=== PATIENT | male | born 1945 | race Caucasian/White ===

== ENCOUNTER 2017-06-18 21:49 | Inpatient (IN) | payer MEDICARE ==
[~2017-06-18 21:49] MED LIST: ISOVUE-370 76%-LOCM 1 ML ONE
[2017-06-18 23:12] LABS: Modified Allen's Test POSITIVE; Sodium 138 mmol/L (135-148); Vent NO
[2017-06-18 23:13] LABS: Mode VENTURI
[2017-06-19] MEDS ORDERED: Acetaminophen 325 MG TAB PO PRN (00:42)
--- NOTE | 2017-06-19 00:42 | PDOC.EVN ---
Event Note - Event Note Event Note: [id number] 1. Acute on chronic systoluc CHF 2. HTN uncontrolled 3. DM tYPE 2 4. h/o cad PLAN: SEE ORDERS
[2017-06-19] MEDS ORDERED: HumaLOG 300 UNITS/3 ML VIAL SC PRN (00:43)
[2017-06-19] MEDS ORDERED: Dextrose 50% Abboject 50 ML SYRINGE SLOW IVP PRN (00:43)
[2017-06-19] MEDS ORDERED: Dextrose 5% in Water 1,000 ML IV PRN (00:43)
[2017-06-19 01:28] LABS: Troponin I 0.159 ng/mL (< 0.028)
[2017-06-19 01:39] VITALS: BMI 34.5
[2017-06-19 05:58] LABS: Troponin I 0.855 ng/mL (< 0.028)
[2017-06-19] MEDS: Furosemide 40 MG/4 ML VIAL SLOW IVP SCH ×2 (06:20→14:36)
--- NOTE | 2017-06-19 06:33 | HP ---
DATE OF ADMISSION: 06/19/2017 CHIEF COMPLAINT: Dyspnea. HISTORY OF PRESENT ILLNESS: Patient is a 72-year-old male with past medical history of hypertension, coronary artery disease, hyperlipidemia, diabetes type 2 with paroxysmal atrial fibrillation, CKD st age 3, came to sudden onset of dyspnea. The patient started all of sudden this evening, he sta rted having dyspnea, dyspnea occurred at rest. There was some lower extremity swelling for the last few weeks. Patient's dyspnea got worse, so he went to outside ER. In the outside ER, the patient wa s hypoxic, so patient was placed initially on nonrebreather, later on patient was placed on CPAP and transferred here. Patient did receive a dose of Lasix by the time patient came to the ER, dyspnea im proved. The patient is currently on room air. He denies chest pain, denies any palpations, denies a ny cough, denies sputum production. Complains of dyspnea on exertion. Complains of dyspnea on lying flat. PAST MEDICAL HISTORY: As per HPI. PAST SURGICAL HISTORY: CABG, appendectomy. SOCIAL HISTORY: Denies smoking, denies alcohol, denies any drugs. FAMILY HISTORY: Positive for heart problems. MEDICATIONS: Reviewed. REVIEW OF SYSTEMS: Constitutional: Denies any fever, denies any chills. Eyes: Denies any vision p roblems. Ears: Denies any hearing loss. Neck: Denies any neck pain. Cardiovascular: Denies any chest pain. Denies any palpations. Respiratory: Denies any cough, denies production. Positive for dyspnea. Musculoskeletal: Positive for edema. Cranial nerve system: Denies syncope. Gastrointes tinal: Denies nausea, vomiting. Integumentary: Denies any rash. All other systems are reviewed an d are negative. PHYSICAL EXAMINATION: CONSTITUTIONAL/VITAL SIGNS: At the time of H&P performed, blood pressure is 160/90, afebrile, respir ation rate 18. GENERAL: The patient appears comfortable. HEENT: Pupils are equal, round, and reactive. Anterior nares patent. Nose normal. Ears normal. T eeth intact. Tongue is moist. NECK: Supple, no JVD. CARDIOVASCULAR: S1, S2 present. Regular rate and rhythm, no murmurs, no rubs, no gallops. RESPIRATORY SYSTEM: Diminished breath sounds bilaterally. Positive for crackles. No wheezing, no r honchi. GASTROINTESTINAL: Soft, nontender, no guarding, no organomegaly, no masses felt. MUSCULOSKELETAL: Positive for edema. INTEGUMENTARY: No rashes seen. PSYCHIATRIC: Mood appropriate at this time. LABORATORY DATA: At the time of H&P performed sodium 137, potassium 4.1, chloride 103, CO2 is 18, BU N 16, creatinine 1.53. BNP 458. White count 7.7, hemoglobin 17.6, platelet count is 212. Chest x-r ay was positive for cardiomegaly and pulmonary vascular congestion. ASSESSMENT AND PLAN: The patient is 72-year-old male. 1. Acute congestive heart failure, possibly systolic heart failure. Plan to start the patient on IV diuretics. Plan to monitor the patient closely. 2. Hypertension, uncontrolled. Monitor blood pressure. Blood pressure improved. We will start pat ient on Coreg. We will add p.r.n. clonidine also. 3. Acute hypoxia. Respiratory status improved. We will monitor respiratory closely. 4. Diabetes mellitus type 2. Monitor blood sugars. We will do insulin sliding scale. 5. History of coronary artery disease. Continue aspirin. 6. History of hyperlipidemia. Continue statins. The case was discussed in detail with the patient.
--- NOTE | 2017-06-19 08:32 | CT ---
PRELIMINARY REPORT/[facility]/EMERGENCY AFTER HOURS PROCEDURE: EXAM: CT Angiography Chest With Intravenous Contrast CLINICAL HISTORY: 72 years old, male; Pain; Chest pain; Type not specified; Patient HX: R/O pe TECHNIQUE: Axial computed tomographic angiography images of the chest with intravenous contrast using pulmonary embolism protocol. CONTRAST: 70 mL of ISOVUE administered intravenously. COMPARISON: No relevant prior studies available. FINDINGS: Pulmonary arteries: No pulmonary embolus in the main or lobar branches. Diffuse motion artifact. No discrete pulmonary embolus identified. Aorta: No acute findings. No thoracic aortic aneurysm. Lungs: Motion artifact. Mild bibasilar dependent and subsegmental atelectasis. Mild interlobular sept al thickening and areas of groundglass attenuation. No mass or consolidation. Pleural space: Small bilateral pleural effusions. Heart: Unremarkable. Bones/joints: No acute fracture. No dislocation. Soft tissues: Unremarkable. Lymph nodes: Unremarkable. No enlarged lymph nodes. IMPRESSION: 1. Motion limited exam. No central pulmonary embolus. 2. Small bilateral pleural effusions. Mild interlobular septal thickening and areas of ground glass attenuation suggestive of edema. Thank you for allowing us to participate in the care of your patient. Dictated and Authenticated by: Nam Mendez MD 06/19/2017 12:52 AM Central Time ([place] & [place]) FINAL REPORT CT PULMONARY ANGIO: Technique: Multiple axial tomograms obtained with IV enhancement in the pulmonary angio phase followi ng angio protocol with multiplanar reconstruction and 3D post processing. FINDINGS: Motion artifact limits the study. No evidence of pulmonary embolus identified. Small effusions and gr ound glass alveolar opacity is seen as described on preliminary report. I am in agreement with the pr eliminary report. QA POS: [facility]
[2017-06-19] MEDS ORDERED: Enoxaparin Sodium 40 MG/0.4 ML SYRINGE SC SCH (09:00)
[2017-06-19] MEDS: Carvedilol 6.25 MG TAB PO SCH ×2 (10:02→16:48)
[2017-06-19] MEDS: Clopidogrel Bisulfate 75 MG TAB PO SCH (10:03)
[2017-06-19] MEDS: Tamsulosin HCl 0.4 MG CAP PO SCH (10:03)
[2017-06-19] MEDS: Allopurinol 100 MG TAB PO SCH (10:03)
[2017-06-19] MEDS: Aspirin 81 mg Enteric Coated Tablet PO SCH (10:03)
[2017-06-19] MEDS: HumaLOG 300 UNITS/3 ML VIAL SC PRN ×2 (12:07→17:10)
--- NOTE | 2017-06-19 13:22 | CON ---
DATE OF CONSULTATION: 06/19/2017 REASON FOR CONSULTATION: IM protocol. HISTORY OF PRESENT ILLNESS: This is a 72-year-old male who developed acute shortness of breath aroun d 7:00 p.m. last night and presented to an [facility] in congestive heart failure. He has bee n treated with diuretics and feels much better this morning. He is no longer experiencing shortness of breath. For reasons that are not quite clear to me, he was admitted to the intermediate care unit . It looks like that he might have been on CPAP for a little while, but he is no longer on that. PAST MEDICAL HISTORY: 1. Coronary artery disease. 2. Non-ST segment elevation myocardial infarction. 3. Atrial fibrillation. 4. Cerebrovascular accident. 5. Hypertension. 6. Congestive heart failure with EF 30%-35%. 7. Hyperlipidemia. 8. Obesity. 9. Benign prostatic hypertrophy. 10. Chronic renal insufficiency. PAST SURGICAL HISTORY: Appendectomy and coronary artery bypass grafting surgery by Dr. Loya. PSYCHIATRIC HISTORY: Remarkable for depression. ALLERGIES: None. MEDICATIONS: Prior to admission, tamsulosin, Proscar, Plavix, allopurinol, acetaminophen, tolterodin e tartrate, testosterone, simvastatin, sertraline, potassium chloride, Nitrostat, Zestril, Amaryl, La six, Zyrtec, Coreg, aspirin, Cordarone. SOCIAL HISTORY: Does not smoke, does not consume alcohol, does not use illicit drugs. 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 REVIEW OF SYSTEMS: Denies any fever, chills, nausea, vomiting, cough, hemoptysis, melena, hematochez ia, hematuria, or dysuria. PHYSICAL EXAMINATION: VITAL SIGNS: Temperature 97.6, pulse 77, respirations 15, O2 sat 99% on 2 liters, blood pressure 153 /97. GENERAL: He is awake and alert, in no distress. HEENT: Pupils for sclerae are icteric. Oropharynx clear. NECK: No adenopathy, no JVD. LUNGS: He has few crackles in both bases bilaterally. CARDIOVASCULAR: S1, S2 is regular, without murmur. ABDOMEN: Soft, nontender, nondistended. EXTREMITIES: No clubbing, cyanosis, trace edema. NEUROLOGIC: Grossly intact throughout. LABORATORY DATA: Sodium 137, potassium 4.1, chloride 103, CO2 18, BUN with 16, creatinine 1.5, gluco se 491. Troponin 0.85. BNP 458. Blood gas pH 7.35, pCO2 42, pO2 of 97. White blood cell count 7.7 , hematocrit 53, platelet count 212. Chest x-ray showed pulmonary edema, bilateral pleural effusions . CT pulmonary angiogram did not show any evidence of clots. ASSESSMENT: 1. Acute systolic congestive heart failure. 2. Acute hypoxic respiratory failure secondary to congestive heart failure. 3. Diabetes mellitus with elevated blood sugar. PLAN: The patient does not need to be in IMCU, can be transferred to Telemetry floor for further car e of his congestive heart failure including diuresis and resumption of his cardiac medications. Dr. Benavidez has been consulted for care in that regard. The patient does not BiPAP therapy.
--- NOTE | 2017-06-19 15:14 | CON ---
DATE OF CONSULTATION: 06/19/2017 REASON FOR CONSULTATION: Shortness of breath and elevated troponin. HISTORY OF PRESENT ILLNESS: Mr. Rivera is a 72-year-old gentleman who was seen and evaluated by Dr. Bhaskar Oliva in the past. He recently presented with acute onset of shortness of breath. This has been occurring over the last several days. He has a history of CAD status post bypass surgery in October 07. He underwent 2-vessel bypass to the ramus branch and LAD. The PDA and RPL were not bypassable nor was the diagonal branch. After reviewing his films, his right coronary artery is 100% occluded. He has a subtotal diagonal br anch and a severely diseased OM branch. PAST MEDICAL HISTORY: CAD, non-Q [place], atrial fibrillation, CVA, cardiomyopathy with LVEF 30%-35%, hyp ertension, obesity. PAST SURGICAL HISTORY: Appendectomy, CABG. ALLERGIES: None. HOME MEDICATIONS: Include Plavix, allopurinol, Proscar, simvastatin, sertraline, potassium, Coreg, a spirin, Cordarone, Amaryl, Zestril, Nitrostat. SOCIAL HISTORY: No current tobacco or alcohol use. REVIEW OF SYSTEMS: Ten point review of systems is reviewed and as above, otherwise negative. PHYSICAL EXAMINATION: GENERAL: Patient is a pleasant male who is in no acute distress. The patient appears his stated age . VITAL SIGNS: Blood pressure 176/99, pulse 73, temperature 97.5. NEUROLOGIC: The patient is alert and oriented times 3 with no focal neurologic deficits. HEENT: Sclerae without icterus. Mouth has moist mucous membranes with normal pallor. NECK: No JVD. Carotid upstroke brisk. No bruits bilaterally. LUNGS: Clear to auscultation with unlabored respirations. BACK: No scoliosis or kyphosis. CARDIAC: Regular rate and rhythm with normal S1 and S2. No S3 or S4 noted. No significant rubs, mu rmurs, thrills, or gallops noted throughout the precordium. PMI is not displaced. There is no parish ternal heave. ABDOMEN: Soft, nontender, nondistended. No peritoneal signs present. No hepatosplenomegaly. No ab normal striae. EXTREMITIES: 2+ femoral and 2+ dorsalis pedis pulses. No cyanosis, clubbing, or edema. SKIN: No gross abnormalities. PERTINENT LABORATORY DATA: Peak troponin 0.85. IMPRESSION: 1. Elevated troponin. 2. Ischemic cardiomyopathy. 3. Coronary artery disease. 4. Status post bypass surgery. RECOMMENDATIONS: Mr. Rivera's current situation is somewhat difficult. He does have a subtotal diag onal branch in addition to a completely occluded right coronary artery with collaterals noted to the right side. I am unsure whether this is demand ischemia versus unstable angina. I did discuss coron lashae angiography with Mr. Rivera. Dr. Weller was present during the discussion. This was my recomme ndation. The patient was reluctant to proceed. Then, did state that we could proceed with medical t herapy. He prefers medical therapy at this time. We would therefore continue aspirin in addition to carvedilol and Plavix. He also has a history of atrial fibrillation. He is currently on amiodarone therapy. I am unsure wh ether he had postop atrial fibrillation or previous atrial fibrillation in the past. If postop atria l fibrillation, we would likely just continue to monitor. This was confirmed on a recent note by Dr. Bhaskar Oliva. He may benefit from a 3-week outpatient event recorder. We will also recommend an echo with Doppler to assess LV function. If less than 35%, he may benefit from a defibrillator.
--- NOTE | 2017-06-19 15:26 | PDOC.PN ---
- Subjective Encounter Start Date: 06/19/17 Encounter Start Time: 15:24 Subjective: feels better.still easily winded w exertion -: no more chest pain - Objective MAR Reviewed: Yes Vital Signs & Weight: Vital Signs (12 hours) Temp Pulse Pulse Pulse Resp BP BP 06/19/17 12:25 76 80 153/101 H 176/99 H 06/19/17 11:15 97.5 F L 73 20 06/19/17 09:04 97.6 F 76 18 06/19/17 08:50 97.6 F 77 15 06/19/17 07:12 97.6 F 77 15 06/19/17 04:00 79 20 BP Pulse Ox Pulse Ox Pulse Ox 06/19/17 12:25 99 97 06/19/17 11:15 161/93 H 95 06/19/17 09:04 156/97 H 99 06/19/17 08:50 06/19/17 07:12 153/97 H 99 06/19/17 04:00 154/85 H 94 L Weight Weight 255 lb I&O: 06/18/17 06/19/17 06/20/17 06:59 06:59 06:59 Intake Total 200 Output Total 1150 Balance -950 Additional Labs: Accuchecks 06/19/17 06/19/17 11:39 06:20 POC Glucose 336 H 392 H Laboratory Tests 10/10/16 02/18/17 06/18/17 08:00 09:39 20:40 D-Dimer Creatinine 1.43 H 1.53 H Troponin I 4.265 H* B-Natriuretic Peptide 06/18/17 06/18/17 06/18/17 20:40 20:40 20:40 D-Dimer 1.41 H Creatinine Troponin I 0.019 B-Natriuretic Peptide 458.8 H 06/19/17 06/19/17 00:53 05:16 D-Dimer Creatinine Troponin I 0.159 H 0.855 H* B-Natriuretic Peptide Phys Exam - Physical Examination Constitutional: NAD HEENT: PERRLA, moist MMs, sclera anicteric, oral pharynx no lesions Neck: no nodes, no JVD, supple, full ROM Respiratory: no wheezing, no rales, no rhonchi, clear to auscultation bilateral bibasilar crackles Cardiovascular: RRR, no significant murmur Gastrointestinal: soft, non-tender, no distention, positive bowel sounds Musculoskeletal: no edema, pulses present Neurological: non-focal, normal sensation, moves all 4 limbs Psychiatric: normal affect, A&O x 3 Skin: no rash Dx/Plan (1) Acute on chronic diastolic heart failure Code(s): I50.33 - ACUTE ON CHRONIC DIASTOLIC (CONGESTIVE) HEART FAILURE Status : Acute (2) NSTEMI (non-ST elevated myocardial infarction) Code(s): I21.4 - NON-ST ELEVATION (NSTEMI) MYOCARDIAL INFARCTION Status: Acute Comment: luis miguel demand ischemia from Ac CHF (3) 3-vessel coronary artery disease Status: Chronic Comment: s/p CABG 10/22 (4) DM type 2 (diabetes mellitus, type 2) Status: Chronic Qualifiers: Diabetes mellitus complication status: with unspecified complications (5) H/O: CVA (cerebrovascular accident) Code(s): Z86.73 - PRSNL HX OF TIA (TIA), AND CEREB INFRC W/O RESID DEFICITS Status: Chronic (6) HLD (hyperlipidemia) Code(s): E78.5 - HYPERLIPIDEMIA, UNSPECIFIED Status: Chronic (7) HTN (hypertension) Code(s): I10 - ESSENTIAL (PRIMARY) HYPERTENSION Status: Chronic (8) Obesity (BMI 30.0-34.9) Code(s): E66.9 - OBESITY, UNSPECIFIED Status: Chronic (9) Paroxysmal a-fib Code(s): I48.0 - PAROXYSMAL ATRIAL FIBRILLATION Status: Resolved Comment: not on any anticoagulation (10) Cardiomyopathy Code(s): I42.9 - CARDIOMYOPATHY, UNSPECIFIED Status: Chronic Comment: EF 30- 35% - Plan DVT proph w/SCDs care discussed w Pt and cardiology.repeat angiogram offered but pt declines -: cont diuresis.repeat ECHO. may need Life vest/AICD -: ? anticoagulation.defer to cardiology. -: monitor I/Os.water restriction.meds as below. -: cont ASA,palvix,BB,statins. * .daily labs. * reconcile home meds Review of Systems - Review of Systems Constitutional: negative: Fever, Chills, Sweats, Weakness, Malaise, Other ENT: negative: Ear Pain, Ear Discharge, Nose Pain, Nose Discharge, Nose Congestion, Mouth Pain, Mouth Swelling, Throat Pain, Throat Swelling, Other Respiratory: SOB with Excertion. negative: Cough, Dry, Shortness of Breath, Hemoptysis, Pleuritic Pain, Sputum, Wheezing Cardiovascular: negative: Chest Pain, Palpitations, Orthopnea, Paroxysmal Noc. Dyspnea, Edema, Light Headedness, Other Gastrointestinal: negative: Nausea, Vomiting, Abdominal Pain, Diarrhea, Constipation, Melena, Hematochezia, Other Genitourinary: negative: Dysuria, Frequency, Incontinence, Hematuria, Retention , Other Musculoskeletal: negative: Neck Pain, Shoulder Pain, Arm Pain, Back Pain, Hand Pain, Leg Pain, Foot Pain, Other Neurological: negative: Weakness, Numbness, Incoordination, Change in Speech, Confusion, Seizures, Other - Medications/Allergies Allergies/Adverse Reactions: Allergies Allergy/AdvReac Type Severity Reaction Status Date / Time No Known Allergies Allergy Verified 06/19/17 07:07 Medications: Current Medications Acetaminophen (Tylenol) 650 mg PO Q4H PRN PRN Reason: fever,pain Allopurinol (Zyloprim) 100 mg PO DAILY [facility] Last Admin: 06/19/17 10:03 Dose: 100 mg Aspirin (Ecotrin) 81 mg PO DAILY [facility] Last Admin: 06/19/17 10:03 Dose: 81 mg Carvedilol (Coreg) 6.25 mg PO BID-[facility] Last Admin: 06/19/17 10:02 Dose: 6.25 mg Clopidogrel Bisulfate (Plavix) 75 mg PO DAILY [facility] Last Admin: 06/19/17 10:03 Dose: 75 mg Dextrose/Water (Dextrose 50%) 25 gm SLOW IVP PRN PRN PRN Reason: Hypoglycemia Enoxaparin Sodium (Lovenox) 40 mg SC 0900 [facility] Last Admin: 06/19/17 12:12 Dose: Not Given Finasteride (Proscar) 5 mg PO HS [facility] Furosemide (Lasix) 40 mg SLOW IVP 0600,1400 [facility] Last Admin: 06/19/17 14:36 Dose: 40 mg Glucagon (Glucagon) 1 mg IM PRN PRN PRN Reason: Hypoglycemia Dextrose/Water (D5w) 1,000 mls @ 0 mls/hr IV .Q0M PRN; As Directed PRN Reason: Hypoglycemia Insulin Human Lispro (Humalog) 0 units SC .MODERATE SLIDING SC PRN PRN Reason: Moderate Correctional Scale Last Admin: 06/19/17 12:07 Dose: 8 unit Insulin Human Lispro (Humalog) 0 units SC .BEDTIME SLIDING SC PRN PRN Reason: Bedtime Correctional Scale Tamsulosin HCl (Flomax) 0.4 mg PO DAILY [facility] Last Admin: 06/19/17 10:03 Dose: 0.4 mg
[2017-06-19] MEDS ORDERED: Communication Order-Pharmacy FS SCH (18:15)
[2017-06-19] MEDS: Finasteride 5 MG TAB PO SCH (21:52)
[2017-06-19] MEDS: Sodium Chloride 0.9% 1,000 ML IV SCH (21:53)
[2017-06-20] MEDS: Sodium Chloride 0.9% 1,000 ML IV SCH ×4 (05:17→20:44)
[2017-06-20] MEDS: Furosemide 40 MG/4 ML VIAL SLOW IVP SCH ×2 (05:22→16:39)
[2017-06-20] MEDS: Allopurinol 100 MG TAB PO SCH (05:34)
[2017-06-20] MEDS: Aspirin 81 mg Enteric Coated Tablet PO SCH (05:35)
[2017-06-20] MEDS: Clopidogrel Bisulfate 75 MG TAB PO SCH (05:35)
[2017-06-20] MEDS: Carvedilol 6.25 MG TAB PO SCH ×2 (05:35→16:40)
[2017-06-20] MEDS: Tamsulosin HCl 0.4 MG CAP PO SCH (05:35)
[2017-06-20 05:55] LABS: #Basophils 0.1 thou/uL (0.0-0.2); #Eosinphils 0.2 thou/uL (0.0-0.7); #Monocytes 0.4 thou/uL (0.11-0.59); #Neutrophils 2.7 thou/uL (1.40-6.50); %Basophils 1.3 % (0.0-1.0); %Eosinophils 3.9 % (0.0-10.0); %Lymphocytes 37.4 % (21.0-51.0); %Monocytes 7.5 % (0.0-10.0); Hematocrit 46.4 % (42.0-52.0); Mean Platelet Volume 7.4 fL (7.4-10.4); Red Blood Cell (RBC) Count 4.85 mill/uL (4.70-6.10); White Blood Cell (WBC) Count 5.5 thou/uL (4.8-10.8)
[2017-06-20 05:57] LABS: Anion Gap 13 mmol/L (10-20); BUN (Urea Nitrogen) 15 mg/dL (8.4-25.7); Calc. Creatinine Clearance 81 mL/min (70-130); Calcium 8.8 mg/dL (7.8-10.44); Carbon Dioxide 24 mmol/L (23-31); Chloride 102 mmol/L (98-107); Estimated GFR-MDRD 53
[2017-06-20] MEDS ORDERED: Heparin 1000 UNIT/NS 500ML(OR) 500 ML ONE ×3 (09:10→10:44)
--- NOTE | 2017-06-20 09:45 | PRG ---
DATE OF SERVICE: 06/20/2017 Mr. Rivera is doing well today. He is scheduled for cardiac catheterization. PHYSICAL EXAMINATION: VITAL SIGNS: Temperature is 98.3, pulse 74, respirations 20, O2 sat 98%, blood pressure 155/89. HEENT: Unremarkable. NECK: No JVD. CHEST: A few crackles in both bases. CARDIAC: S1 and S2 regular. ABDOMEN: Soft. EXTREMITIES: No edema. LABORATORY DATA: White blood cell count 5.5, hematocrit 46, platelet count 154. Sodium 135, potassi um 3.8, BUN 15, creatinine 1.3, glucose 286. Troponin 0.85. ASSESSMENT: 1. Status post flash pulmonary edema related to congestive heart failure. 2. Stable respiratory status. 3. Ischemic cardiomyopathy. PLAN: Coronary angiography today. He is stable from a respiratory standpoint.
[2017-06-20] MEDS ORDERED: Heparin 10,000 UNITS/1 ML VIAL ONE (10:24)
[2017-06-20] MEDS ORDERED: Clopidogrel Bisulfate 300 MG TAB ONE (10:31)
[2017-06-20] MEDS ORDERED: Nitroglycerin 100MG/250ML BOT 250 ML ONE (10:41)
[2017-06-20] MEDS: Polyethylene Glycol 3350 17 GM Packet PO SCH (10:54)
[2017-06-20] MEDS ORDERED: Zolpidem Tartrate 5 MG TAB PO PRN (10:56)
[2017-06-20] MEDS ORDERED: Acetaminophen/Codeine 30-300mg Tablet PO PRN (10:56)
[2017-06-20] MEDS ORDERED: Milk Of Magnesia 30 ML UDCUP PO PRN (10:56)
[2017-06-20] MEDS ORDERED: Mag-Al 1200 mg/1200 mg/30 ML UDCUP PO PRN (10:56)
--- NOTE | 2017-06-20 11:08 | PRG ---
DATE OF SERVICE: 06/20/2017 I spoke to Mr. Rivera prior to the procedure. Yesterday during my visit, he decided on medical thera py. He has now decided to proceed with coronary angiography to assess his coronary anatomy. This wa s discussed with his . Procedure discussed in full detail yesterday. The risks of the procedure include but are not limited to the following: , stroke, [place], need for emergency surgery, loss o f limb, bleeding, and infection, as well as a reaction to the dye causing kidney failure and needing long-term dialysis. I also discussed the risks of PCI to include all of the above including coronary dissection and perforation in addition to acute stent thrombosis and restenosis. All questions abou t the procedure were answered. Given the above, the patient agreed to proceed with coronary angiogra phy and possible PCI. I also discussed drug-coated versus nondrug coated stent placement. There are no current medications and will proceed if needed. He underwent coronary angiography successfully. He was found to have an occluded graft to the LAD an d a patent graft to an intermediate ramus branch. The large OM branch was uncovered. There was also a new lesion noted in the distal LAD. He had a subtotaled groove circumflex artery and a subtotaled diagonal branch and a completely occluded right coronary artery that is known. Then decided to proceed with stent placement to the circumflex artery given the size of the vessel an d the LAD distribution. His creatinine was marginal with low LVEF decided to a staged procedure if n eeded. He underwent successful stent placement of 3.0 x 20 mm Synergy stent.
[2017-06-20] MEDS ORDERED: Fentanyl 100 MCG/2 ML VIAL ONE (13:43)
--- NOTE | 2017-06-20 15:50 | PDOC.PN ---
- Subjective Encounter Start Date: 06/20/17 Encounter Start Time: 15:48 Subjective: s/p Cath today.feels Good. no chest pain/SOB - Objective MAR Reviewed: Yes Vital Signs & Weight: Vital Signs (12 hours) Temp Pulse Resp BP BP Pulse Ox 06/20/17 15:25 97.6 F 72 20 160/90 H 97 06/20/17 08:00 98.3 F 74 20 155/89 H 98 06/20/17 05:35 73 18 155/87 H 98 Weight Weight 252 lb 9.6 oz I&O: 06/19/17 06/20/17 06/21/17 06:59 06:59 06:59 Intake Total 200 2000 Output Total 1150 1175 Balance -950 825 Result Diagrams: 06/20/17 05:05 06/20/17 05:05 Additional Labs: Accuchecks 06/20/17 06/19/17 06/19/17 05:47 21:10 16:53 POC Glucose 269 H 278 H 341 H Laboratory Tests 06/18/17 06/20/17 20:40 05:05 Creatinine 1.53 H 1.33 H Phys Exam - Physical Examination Constitutional: NAD HEENT: PERRLA, moist MMs, sclera anicteric, oral pharynx no lesions Neck: no nodes, no JVD, supple, full ROM Respiratory: no wheezing, no rales, no rhonchi, clear to auscultation bilateral Cardiovascular: RRR, no significant murmur, no rub, gallop Gastrointestinal: soft, non-tender, no distention, positive bowel sounds Musculoskeletal: no edema, pulses present Neurological: non-focal, normal sensation, moves all 4 limbs Psychiatric: normal affect, A&O x 3 Skin: no rash Dx/Plan (1) Acute on chronic diastolic heart failure Code(s): I50.33 - ACUTE ON CHRONIC DIASTOLIC (CONGESTIVE) HEART FAILURE Status : Acute (2) NSTEMI (non-ST elevated myocardial infarction) Code(s): I21.4 - NON-ST ELEVATION (NSTEMI) MYOCARDIAL INFARCTION Status: Acute Comment: luis miguel demand ischemia from Ac CHF. S/P Cath and stenting 06/20/17 (3) 3-vessel coronary artery disease Status: Chronic Comment: s/p CABG 10/22 (4) DM type 2 (diabetes mellitus, type 2) Status: Chronic Qualifiers: Diabetes mellitus complication status: with unspecified complications (5) H/O: CVA (cerebrovascular accident) Code(s): Z86.73 - PRSNL HX OF TIA (TIA), AND CEREB INFRC W/O RESID DEFICITS Status: Chronic (6) HLD (hyperlipidemia) Code(s): E78.5 - HYPERLIPIDEMIA, UNSPECIFIED Status: Chronic (7) HTN (hypertension) Code(s): I10 - ESSENTIAL (PRIMARY) HYPERTENSION Status: Chronic (8) Obesity (BMI 30.0-34.9) Code(s): E66.9 - OBESITY, UNSPECIFIED Status: Chronic (9) Paroxysmal a-fib Code(s): I48.0 - PAROXYSMAL ATRIAL FIBRILLATION Status: Resolved Comment: not on any anticoagulation (10) Cardiomyopathy Code(s): I42.9 - CARDIOMYOPATHY, UNSPECIFIED Status: Chronic Comment: EF 30- 35% - Plan DVT proph w/SCDs hemodynamically stable. monitor fluid balance as on IVF post cath -: ont home meds .pt not taking amiodarone anymore. Not on AC.NSR -: ? DC lasix.will defer to cardiology. -: CR and HF clinic f/u on DC -: am labs.ECHO pending * . Review of Systems - Review of Systems Constitutional: negative: Fever, Chills, Sweats, Weakness, Malaise, Other Respiratory: negative: Cough, Dry, Shortness of Breath, Hemoptysis, SOB with Excertion, Pleuritic Pain, Sputum, Wheezing Cardiovascular: negative: Chest Pain, Palpitations, Orthopnea, Paroxysmal Noc. Dyspnea, Edema, Light Headedness, Other Gastrointestinal: negative: Nausea, Vomiting, Abdominal Pain, Diarrhea, Constipation, Melena, Hematochezia, Other Genitourinary: negative: Dysuria, Frequency, Incontinence, Hematuria, Retention , Other Musculoskeletal: negative: Neck Pain, Shoulder Pain, Arm Pain, Back Pain, Hand Pain, Leg Pain, Foot Pain, Other Neurological: negative: Weakness, Numbness, Incoordination, Change in Speech, Confusion, Seizures, Other - Medications/Allergies Allergies/Adverse Reactions: Allergies Allergy/AdvReac Type Severity Reaction Status Date / Time No Known Allergies Allergy Verified 06/19/17 07:07 Medications: Current Medications Acetaminophen (Tylenol) 650 mg PO Q4H PRN PRN Reason: fever,pain Acetaminophen/Codeine Phosphate (Tylenol #3) 1 tab PO Q4H PRN PRN Reason: Mild Pain (1-3) Al Hydroxide/Mg Hydroxide (Maalox) 30 ml PO Q3H PRN PRN Reason: Indigestion Allopurinol (Zyloprim) 100 mg PO DAILY [facility] Last Admin: 06/20/17 05:34 Dose: 100 mg Aspirin (Ecotrin) 81 mg PO DAILY [facility] Last Admin: 06/20/17 05:35 Dose: 81 mg Atorvastatin Calcium (Lipitor) 40 mg PO QPM [facility] Carvedilol (Coreg) 6.25 mg PO BID[facility] Last Admin: 06/20/17 05:35 Dose: 6.25 mg Clopidogrel Bisulfate (Plavix) 75 mg PO DAILY [facility] Last Admin: 06/20/17 05:35 Dose: 75 mg Dextrose/Water (Dextrose 50%) 25 gm SLOW IVP PRN PRN PRN Reason: Hypoglycemia Finasteride (Proscar) 5 mg PO HS [facility] Last Admin: 06/19/17 21:52 Dose: 5 mg Furosemide (Lasix) 40 mg SLOW IVP 0600,1400 [facility] Last Admin: 06/20/17 05:22 Dose: Not Given Glipizide (Glucotrol Xl) 10 mg PO QAM[facility] Glucagon (Glucagon) 1 mg IM PRN PRN PRN Reason: Hypoglycemia Dextrose/Water (D5w) 1,000 mls @ 0 mls/hr IV .Q0M PRN; As Directed PRN Reason: Hypoglycemia Sodium Chloride (Normal Saline 0.9%) 1,000 mls @ 100 mls/hr IV .Q10H [facility] Last Admin: 06/20/17 05:17 Dose: Not Given Sodium Chloride (Normal Saline 0.9%) 1,000 mls @ 100 mls/hr IV .Q10H [facility] Stop: 06/24/17 14:59 Insulin Human Lispro (Humalog) 0 units SC .MODERATE SLIDING SC PRN PRN Reason: Moderate Correctional Scale Last Admin: 06/19/17 17:10 Dose: 8 unit Insulin Human Lispro (Humalog) 0 units SC .BEDTIME SLIDING SC PRN PRN Reason: Bedtime Correctional Scale Magnesium Hydroxide (Milk Of Magnesium) 30 ml PO Q12H PRN PRN Reason: Constipation Polyethylene Glycol (Miralax) 17 gm PO DAILY [facility] Last Admin: 06/20/17 10:54 Dose: Not Given Potassium Chloride (K-Dur) 20 meq PO QAM[facility] Sodium Chloride (Flush - Normal Saline) 10 ml IVF Q12HR [facility] Last Admin: 06/20/17 13:48 Dose: Not Given Sodium Chloride (Flush - Normal Saline) 10 ml IVF PRN PRN PRN Reason: Saline Flush Tamsulosin HCl (Flomax) 0.4 mg PO DAILY [facility] Last Admin: 06/20/17 05:35 Dose: 0.4 mg Zolpidem Tartrate (Ambien) 5 mg PO HSPRN PRN PRN Reason: Insomnia
[2017-06-20] MEDS ORDERED: Iopamidol 370 76% 50 ML VIAL FS ONE (16:15)
[2017-06-20] MEDS ORDERED: Iopamidol 370 76% 100 ML VIAL ONE (16:15)
[2017-06-20] MEDS ORDERED: Sodium Chloride 0.9% 1,000 ML IV SCH (16:30)
[2017-06-20] MEDS ORDERED: Potassium Chloride 20 MEQ TAB PO SCH (17:00)
[2017-06-20] MEDS: HumaLOG 300 UNITS/3 ML VIAL SC PRN (18:21)
[2017-06-20] MEDS: Finasteride 5 MG TAB PO SCH (20:44)
[2017-06-20] MEDS ORDERED: Atorvastatin Calcium 40 MG TAB PO SCH (21:00)
[2017-06-20] MEDS ORDERED: Non-Formulary Item 1 EACH (Simvastatin [Simvastatin] 80 MG) PO SCH (21:00)
[2017-06-21] MEDS: HumaLOG 300 UNITS/3 ML VIAL SC PRN ×2 (05:44→13:05)
[2017-06-21 06:02] LABS: #Eosinphils 0.3 thou/uL (0.0-0.7); #Lymphocytes 2.2 thou/uL (1.20-3.40); #Monocytes 0.5 thou/uL (0.11-0.59); #Neutrophils 3.6 thou/uL (1.40-6.50); %Basophils 0.6 % (0.0-1.0); %Lymphocytes 33.9 % (21.0-51.0); %Monocytes 7.3 % (0.0-10.0); Mean Platelet Volume 6.9 fL (7.4-10.4); Red Blood Cell (RBC) Count 4.87 mill/uL (4.70-6.10); White Blood Cell (WBC) Count 6.6 thou/uL (4.8-10.8)
[2017-06-21 06:19] LABS: ALT (SGPT) 13 U/L (8-55); AST (SGOT) 9 U/L (5-34); Alkaline Phosphatase 89 U/L (40-150); Anion Gap 12 mmol/L (10-20); BUN (Urea Nitrogen) 11 mg/dL (8.4-25.7); Bilirubin, Total 1.9 mg/dL (0.2-1.2); Calc. Creatinine Clearance 85 mL/min (70-130); Calcium 8.9 mg/dL (7.8-10.44); Carbon Dioxide 29 mmol/L (23-31); Chloride 100 mmol/L (98-107); Estimated GFR-MDRD 56; Globulin 3.5 g/dL (2.4-3.5); Protein, Total 6.7 g/dL (5.8-8.1)
[2017-06-21] MEDS: Furosemide 40 MG/4 ML VIAL SLOW IVP SCH ×2 (06:36→13:05)
[2017-06-21] MEDS ORDERED: Potassium Chloride 20 MEQ TAB PO SCH ×2 (08:00→12:45)
[2017-06-21] MEDS: Tamsulosin HCl 0.4 MG CAP PO SCH (08:28)
[2017-06-21] MEDS: Clopidogrel Bisulfate 75 MG TAB PO SCH (08:28)
[2017-06-21] MEDS: Aspirin 81 mg Enteric Coated Tablet PO SCH (08:28)
[2017-06-21] MEDS: Carvedilol 6.25 MG TAB PO SCH ×2 (08:28→16:57)
[2017-06-21] MEDS: Allopurinol 100 MG TAB PO SCH (08:28)
[2017-06-21] MEDS: Polyethylene Glycol 3350 17 GM Packet PO SCH (08:29)
--- NOTE | 2017-06-21 08:51 | PRG ---
DATE OF SERVICE: 06/21/2017 SUBJECTIVE: He is doing well with his breathing and has no complaints. OBJECTIVE: VITAL SIGNS: Temperature 96.8, pulse 70, blood pressure 153/95, O2 sat 98% on room air, and respirat ory rate 20. HEENT: Unremarkable. NECK: No JVD. CHEST: Clear without wheezing. CARDIAC: S1 and S2, regular. ABDOMEN: Soft. EXTREMITIES: No edema. LABORATORY DATA: White blood cell count 6.6, hematocrit 46, and platelet count 175. Sodium 138, pot assium 3.2, chloride 100, CO2 of 29, BUN 11, creatinine 1.2, and glucose 225. ASSESSMENT: 1. Congestive heart failure. 2. Coronary ischemia - status post coronary angiography and stenting yesterday. 3. Ischemic cardiomyopathy. PLAN: The patient is stable from a respiratory standpoint. I think he can go home. No further pulm onary issues. Please recall if further assistance needed.
--- NOTE | 2017-06-21 12:48 | PDOC.PN ---
- Subjective Encounter Start Date: 06/21/17 Encounter Start Time: 12:47 Patient seen and examined. No new complaints. No overnight events. No chest pain or sob. - Objective MAR Reviewed: Yes Vital Signs & Weight: Vital Signs (12 hours) Temp Pulse Resp BP BP Pulse Ox 06/21/17 11:30 97.5 F L 71 24 H 150/88 H 97 06/21/17 08:28 153/95 H 06/21/17 08:00 97.5 F L 71 24 H 06/21/17 07:21 96.8 F L 70 20 153/95 H 98 06/21/17 03:20 97.7 F 70 14 136/85 98 Weight Weight 252 lb 14.4 oz I&O: 06/20/17 06/21/17 06/22/17 06:59 06:59 06:59 Intake Total 1999 1083 Output Total 1175 1850 Balance 825 -447 Result Diagrams: 06/21/17 05:38 06/21/17 05:38 Additional Labs: Accuchecks 06/21/17 06/21/17 06/20/17 10:40 05:30 20:56 POC Glucose 303 H 211 H 269 H 06/20/17 16:54 POC Glucose 342 H Phys Exam - Physical Examination HEENT: sclera anicteric Neck: supple Respiratory: no wheezing, no rales Cardiovascular: RRR Gastrointestinal: soft Musculoskeletal: no edema Neurological: non-focal, moves all 4 limbs Psychiatric: normal affect, A&O x 3 Skin: no rash Dx/Plan (1) Acute on chronic diastolic heart failure Code(s): I50.33 - ACUTE ON CHRONIC DIASTOLIC (CONGESTIVE) HEART FAILURE Status : Acute (2) NSTEMI (non-ST elevated myocardial infarction) Code(s): I21.4 - NON-ST ELEVATION (NSTEMI) MYOCARDIAL INFARCTION Status: Acute Comment: luis miguel demand ischemia from Ac CHF. S/P Cath and stenting 06/20/17 (3) S/P CABG (coronary artery bypass graft) Code(s): Z95.1 - PRESENCE OF AORTOCORONARY BYPASS GRAFT Status: Acute (4) 3-vessel coronary artery disease Status: Chronic Comment: s/p CABG 10/22 (5) Hypokalemia Code(s): E87.6 - HYPOKALEMIA Status: Resolved - Plan cont current plan of care * . Dc home today. continue home medications. f/u wtih cards i one week.
[2017-06-21 15:40] VITALS: TEMP 97.7
[2017-06-21 16:57] VITALS: BP 153/95
--- NOTE | 2017-06-21 23:37 | DIS ---
DATE OF ADMISSION: 06/19/2017 DATE OF DISCHARGE: 06/21/2017 CONSULTATIONS: Dr. Jones per IMCU protocol and Dr. Lechuga from Cardiology. PROCEDURE: Cardiac catheterization with stent placed to circumflex artery. DISCHARGE DIAGNOSES: 1. Coronary artery disease. 2. Shortness of breath with congestive heart failure exacerbation. 3. Status post stent placement. 4. Hypertension. 5. Hyperlipidemia. 6. Type 2 diabetes. 7. Paroxysmal atrial fibrillation. 8. Chronic kidney disease, stage 3. HOSPITAL COURSE: This is a 72-year-old male with a past medical history as mentioned above, includin g coronary artery disease, hypertension who came to the hospital with shortness of breath and found t o have CHF exacerbation and also had a heart catheterization done with stents placed. Patient was fe eling better and was supposed to go home. Patient was feeling good on the day of discharge and no me dication changes were recommended by Cardiology. Continue the same medications. Follow up with ____ _ outpatient. The patient was also seen by Pulmonology as he was in [facility] per protocol and was stable for discharge from their standpoint. DISCHARGE MEDICATIONS: There are no medication changes done during this visit, glipizide 10 mg p.o. q.a.m., potassium citrate 1 packet p.o. b.i.d. MiraLax as needed, Lasix 40 p.o. daily, potassium 20 mEq b.i.d., Proscar 5 mg p.o. at bedtime, simvastatin 80 mg p.o. q.a.m., Plavix 75 mg daily, aspirin 325 mg daily, allopurinol, Flomax, and Coreg 6.25 b.i.d. ALLERGIES: No known drug allergies. DISCHARGE DISPOSITION: Home. CONDITION ON DISCHARGE: Stable. DISCHARGE FOLLOWUP: With primary care physician in 1 week, Cardiology in 1-2 weeks. Please note that I have spent more than 35 minutes coordinating the discharge care of this patient.
== END 2017-06-21 17:29 | disposition home or self-care (01) | DRG 246 ==
LOC: ERS 21:49 → IMCU/EMU 06-19 00:24 → 2SE 06-19 08:23
PROVIDERS: ADMIT Internal Medicine; ATTEND Internal Medicine
PROC: 027034Z Dilation of Coronary Artery, One Artery with Drug-eluting Intraluminal Device, Percutaneous Approach (ICD-10-PCS; principal; 2017-06-20)
PROC: 4A023N7 Measurement of Cardiac Sampling and Pressure, Left Heart, Percutaneous Approach (ICD-10-PCS; 2017-06-20)
PROC: B3101ZZ Fluoroscopy of Thoracic Aorta using Low Osmolar Contrast (ICD-10-PCS; 2017-06-20)
PROC: B2111ZZ Fluoroscopy of Multiple Coronary Arteries using Low Osmolar Contrast (ICD-10-PCS; 2017-06-20)
PROC: B2151ZZ Fluoroscopy of Left Heart using Low Osmolar Contrast (ICD-10-PCS; 2017-06-20)
DX: I13.0 Hypertensive heart and chronic kidney disease with heart failure and stage 1 through stage 4 chronic kidney disease, or unspecified chronic kidney disease (principal); J96.01 Acute respiratory failure with hypoxia; I50.23 Acute on chronic systolic (congestive) heart failure; I24.8 Other forms of acute ischemic heart disease; I48.0 Paroxysmal atrial fibrillation; E11.22 Type 2 diabetes mellitus with diabetic chronic kidney disease; E78.5 Hyperlipidemia, unspecified; E11.9 Type 2 diabetes mellitus without complications; I25.5 Ischemic cardiomyopathy; I25.10 Atherosclerotic heart disease of native coronary artery without angina pectoris; N18.3 Chronic kidney disease, stage 3 (moderate); I25.2 Old myocardial infarction; N40.0 Benign prostatic hyperplasia without lower urinary tract symptoms; Z86.73 Personal history of transient ischemic attack (TIA), and cerebral infarction without residual deficits; E87.6 Hypokalemia; E66.9 Obesity, unspecified; Z68.30 Body mass index [BMI] 30.0-30.9, adult
CPT/HCPCS: 36415; 36416; 71275; 80048; 80053; 82805; 84484; 85025; 85347; 92928; 93005; 93010; 93306; 93455; 93567; 93798; 94660; A4216; C1725; C1769; C1874; C1887; C9600; J1644; J1650; J1940; J3010

== ENCOUNTER 2017-09-05 21:44 | Inpatient (IN) | payer MEDICARE ==
[2017-09-05 22:23] LABS: Base Excess-Venous -1.6 mmol/L (-30.0-30.0); Bicarbonate (HCO3v) 21.8 mmol/L (1.0-85.0); CO2 Tension (PvCO2) 32.9 mmHg (41.0-51.0); Hemoglobin - Calc 18.3 g/dL (12.0-18.0); Potassium 3.8 mmol/L (3.4-4.7); T. Carbon Dioxide 22.8 mmol/L (1.0-85.0); pH (Venous) 7.428 (7.35-7.45); vO2 Saturation-calc 94.4 % (0.0-100.0)
[2017-09-05 22:51] LABS: Troponin I 2.887 ng/mL (< 0.028)
[2017-09-05] MEDS ORDERED: Labetalol HCl 100 MG/20 ML VIAL ONE (23:21)
[2017-09-06] MEDS ORDERED: Acetaminophen 325 MG TAB PO PRN (00:29)
[2017-09-06] MEDS ORDERED: Ondansetron ODT 4 MG TAB SL PRN (00:29)
[2017-09-06] MEDS ORDERED: Ondansetron HCl/PF 4 MG/2 ML Vial IVP PRN ×2 (00:29→03:42)
[2017-09-06] MEDS ORDERED: Sodium Chloride 0.9% 1,000 ML IV SCH ×3 (00:30→14:30)
[2017-09-06 00:34] VITALS: BMI 33.9
[2017-09-06] MEDS ORDERED: Nitroglycerin 2% Ointment 1 INCH/1 GM Packet TOP SCH (01:00)
[2017-09-06 02:07] LABS: Critical Call Chem Troponin I RESULT DECREASING; Troponin I 2.782 ng/mL (< 0.028)
[2017-09-06] MEDS ORDERED: Ondansetron ODT 4 MG TAB PO PRN (03:42)
[2017-09-06] MEDS ORDERED: hydrALAZINE 20 MG/ML VIAL SLOW IVP PRN (03:42)
[2017-09-06] MEDS ORDERED: Dextrose 50% Abboject 50 ML SYRINGE SLOW IVP PRN (03:42)
[2017-09-06] MEDS ORDERED: Nitroglycerin 0.4 MG TAB (25 Tab Bottle) SL PRN (03:42)
[2017-09-06] MEDS ORDERED: Dextrose 5% in Water 1,000 ML IV PRN (03:42)
[2017-09-06] MEDS ORDERED: cloNIDine 0.1 MG TAB PO PRN (03:42)
[2017-09-06] MEDS ORDERED: Acetaminophen 500 MG TAB PO PRN (03:42)
[2017-09-06] MEDS ORDERED: Aspirin 325 MG TAB PO SCH ×2 (04:00→09:00)
--- NOTE | 2017-09-06 04:25 | HP ---
DATE OF ADMISSION: 09/05/2017 PRIMARY CARE PHYSICIAN: Dr. Chaney. CHIEF COMPLAINT: Shortness of breath. HISTORY OF PRESENT ILLNESS: This is a 72-year-old male who presents to [facility] Emergency Department and transfer from [place] [facility] for suspected non-S T elevation myocardial infarction. Patient presented to [place] [facility] complaining of s hortness of breath over the last several months with mild chest pain. Patient states he was recently admitted in 06/2017 undergoing a left heart catheterization with placement of a drug-eluting stent t o the first obtuse marginal branch. Patient has been compliant with his current medications includin g aspirin therapy. Patient was also noted with depressed ejection fraction in the 30% range on 2D tr ansthoracic echocardiogram, and patient was prescribed a LifeVest. Patient states that the LifeVest has not delivered any type of shock or charge at home. In the emergency room, patient underwent gene ral evaluation including EKG evaluation showing sinus mechanism without acute ST-T wave changes appre ciated. Patient received IV labetalol, after blood pressure was noted at 149/101. Patient also rece ived aspirin 324 mg, Lovenox 100 mg subcutaneously x1 dose, morphine sulfate, Lasix 40 mg x1 dose, am lodipine, and transdermal nitroglycerin. Patient currently states he has no specific complaints of c hest pain. Patient was referred to the Hospitalist Service for admission and evaluation. PAST MEDICAL HISTORY: 1. Chronic kidney disease, stage 3. 2. Hyperlipidemia. 3. Paroxysmal atrial fibrillation. 4. History of obstructive uropathy. 5. Chronic bladder calculi. 6. Benign prosthetic hyperplasia. 7. Chronic systolic congestive heart failure with ejection fraction of 35%. 8. Mild bilateral hydronephrosis. 9. Hypertension. 10. Coronary artery disease. PAST SURGICAL HISTORY: 1. Status post appendectomy. 2. Status post bladder stents. 3. Status post coronary artery bypass grafting x2 vessels. 4. Status post left heart catheterization with drug-eluting stent placement to this first obtuse mar ginal branch. CURRENT MEDICATIONS: We will need to be confirmed with family members. ALLERGIES: No known drug allergies. FAMILY HISTORY: Positive for coronary artery disease. SOCIAL HISTORY: Patient is , resides in [place], [place]. Retired. No current alcohol, tobacco, or illicit drug use. REVIEW OF SYSTEMS: The following complete review of systems was otherwise negative, except as stated per HPI: Constitutional: Weight loss or gain, ability to conduct usual activities. Skin: Rash, i tching. Eyes: Double vision, pain. ENT/Mouth: Nose bleeding, neck stiffness, pain, tenderness. C ardiovascular: Palpitations, dyspnea on exertion, orthopnea. Respiratory: Shortness of breath, whe ezing, cough, hemoptysis, fever, or night sweats. Gastrointestinal: Poor appetite, abdominal pain, heartburn, nausea, vomiting, constipation, or diarrhea. Genitourinary: Urgency, frequency, dysuria, nocturia. Musculoskeletal: Pain, swelling. Neurologic/Psychiatric: Anxiety, depression. Allergy /Immunologic: Skin rash, bleeding tendency. PHYSICAL EXAMINATION: VITAL SIGNS: On admission blood pressure 157/92, pulse 76, respiratory rate 20, temperature 97.5 deg emmanuel Fahrenheit, O2 saturation 96% on 2 liters per minute by nasal cannula. GENERAL APPEARANCE: This is a 72-year-old male, alert and oriented x3, pleasant, in no acu te distress. HEENT: Pupils are equal, round, and reactive to light and accommodation. Extraocular muscles are in tact. No scleral icterus, no conjunctival injection. Nares patent. OP is clear. NECK: Supple, no cervical adenopathy, no thyromegaly, no carotid bruits, no JVD appreciated. Cervic al spine with full active and passive range of motion. CHEST: Diminished breath sounds in the bases bilaterally. CARDIOVASCULAR: S1, S2, without noted murmur. ABDOMEN: Obese, soft, nontender, nondistended. Bowel sounds are positive in all four quadrants. Th ere is no hepatosplenomegaly, no abdominal bruits. No rebound or guarding appreciated. EXTREMITIES: Warm and dry with fair turgor and mild pitting edema to the mid-lima bilaterally. Puls es palpable distally at the dorsalis pedis, posterior tibial, and popliteal arteries bilaterally. Ca pillary refill less than 2 seconds. NEUROLOGIC: Cranial nerves II-XII are grossly intact. No focal or lateralizing signs appreciated. PERTINENT LABORATORY AND X-RAY FINDINGS: Sodium 138, potassium 4.1, chloride 103, CO2 of 20, BUN 13, creatinine 1.29 with estimated GFR 55, glucose 349. Last hemoglobin A1c 10.1 on 07/18/2017, calcium 9.3. LFTs within normal limits. Troponin I ranged between 2.53-2.89. BNP with 559 previously noted 459 on 06/08/2017. CBC showed white blood cell count of 6.8, hemoglobin 17, hematocrit 52, platelet count 192 with normal differential. Beta-hydroxybutyrate level 1.17. EKG dated 09/05/2017 by my in terpretation shows sinus mechanism, heart rate is in the 80s. Attenuated R waves noted in the precor dial leads. Normal axis. Voltage criteria consistent with left ventricular hypertrophy. Portable c hest x-ray dated 09/05/2017 showed pulmonary vascular prominence with patchy bibasilar infiltrates. ASSESSMENT AND PLAN: 1. Non-ST elevation myocardial infarction. Patient will be admitted to the telemetry unit. We will consult Cardiology service in the a.m. Continue aspirin 325 mg daily, Lipitor 40 mg p.o. at bedtime . Consult Cardiology Service for further recommendations and management. Hold Lovenox. 2. Ischemic cardiomyopathy with ejection fraction of approximately 30%. Continue supportive managem ent. Lasix 40 mg as needed. Last 2D transthoracic echocardiogram on 06/19/2017. 3. Diabetes mellitus type 2. Insulin sliding scale for reflexive coverage. Resume glipizide after cardiac evaluation. Accu-Cheks a.c. and at bedtime. 4. Coronary artery disease, status post cardiac stent placement to first obtuse marginal. Stable cu rrently. Continue general supportive measures. 5. Deconditioning. PT evaluation for functional assessment. 6. Hypertension. Resume home antihypertensive regimen and monitor clinical response. 7. Prophylaxis. Sequential compression devices while in bed. PT evaluation for functional assessme nt. Pepcid 20 mg p.o. b.i.d. 8. Code status is FULL. Surrogate medical decision maker is patient's spouse.
[2017-09-06 05:54] LABS: CKMB 3.1 ng/mL (0-6.6)
[2017-09-06 06:03] LABS: Critical Call Chem Troponin I RESULT DECREASING; Troponin I 2.657 ng/mL (< 0.028)
[2017-09-06] MEDS ORDERED: Iopamidol 370 76% 50 ML VIAL FS ONE (07:01)
[2017-09-06] MEDS ORDERED: Iopamidol 370 76% 100 ML VIAL ONE (07:01)
[2017-09-06] MEDS ORDERED: FLU VACC TS2017-18 (>65YR) 0.5 ML SYRINGE IM ONE (09:00)
[2017-09-06] MEDS ORDERED: Prevnar 13-Val Conj/PF 0.5 ML SYRINGE IM ONE (09:00)
[2017-09-06] MEDS ORDERED: Communication Order-Pharmacy FS SCH (12:15)
[2017-09-06] MEDS ORDERED: Diazepam 5 MG TAB PO SCH (12:15)
--- NOTE | 2017-09-06 12:38 | PDOC.EVN ---
Event Note - Event Note Event Note: Chart reviewed. Pt seen. Will follow.
[2017-09-06] MEDS: Famotidine 20 MG TAB PO SCH ×2 (12:42→20:12)
[2017-09-06] MEDS ORDERED: Lidocaine 1% (PF) 30 ML VIAL ONE (12:55)
--- NOTE | 2017-09-06 13:38 | CON ---
DATE OF CONSULTATION: 09/06/2017 REASON FOR CONSULTATION: Elevated troponin and shortness of breath. HISTORY OF PRESENT ILLNESS: Mr. Rivera is a pleasant 72-year-old gentleman who is a previous patient of Dr. Bhaskar Oliva. He has a history of CAD status post bypass surgery. He underwent coronary angiog aylin on 06/2017. He underwent successful stent placement to the high OM versus ramus branch. He mora d residual stenosis of the LAD. He had a known occlusion of the right coronary artery. He recently presented with shortness of breath. Troponin was in the 2.6 range. No chest pain or pre ssure noted. PAST MEDICAL HISTORY: Chronic kidney disease, hyperlipidemia, atrial fibrillation, BPH, systolic hea rt failure and hypertension. PAST SURGICAL HISTORY: Appendectomy, CABG x2 and CAD status post stent placement. ALLERGIES: None. FAMILY HISTORY: Positive for CAD. SOCIAL HISTORY: No current tobacco or alcohol use. HOME MEDICATIONS: Glipizide, Zocor, potassium, Nitrostat, Lasix, Plavix, aspirin, Coreg and allopuri nol. REVIEW OF SYSTEMS: Ten-point review of systems reviewed and is as above negative. PHYSICAL EXAMINATION: GENERAL: Patient is a pleasant male who is in no acute distress. The patient appears his stated age . VITAL SIGNS: Blood pressure 157/92, pulse 86 and respirations 20. NEUROLOGIC: The patient is alert and oriented x3 with no focal neurologic deficits. HEENT: Sclerae without icterus. Mouth has moist mucous membranes with normal pallor. NECK: No JVD. Carotid upstroke brisk. No bruits bilaterally. LUNGS: Clear to auscultation with unlabored respirations. BACK: No scoliosis or kyphosis. CARDIAC: Regular rate and rhythm with normal S1 and S2. No S3 or S4 noted. No significant rubs, mu rmurs, thrills, or gallops noted throughout the precordium. PMI is not displaced. There is no parish ternal heave. ABDOMEN: Soft, nontender, nondistended. No peritoneal signs present. No hepatosplenomegaly. No ab normal striae. EXTREMITIES: 2+ femoral and 2+ dorsalis pedis pulses. No cyanosis, clubbing, or edema. SKIN: No gross abnormalities. PERTINENT LABORATORY DATA: Creatinine 1.29, GFR 55, troponin 2.6 and BNP of 559. IMPRESSION: 1. Shortness of breath. 2. Coronary artery disease. 3. Status post bypass surgery. 4. Status post stent placement. RECOMMENDATIONS: I had a long discussion with Mr. Rivera and had recommendations for treatment. I a m concerned about his elevated troponin. This may be due to demand ischemia or may also be due to is sues with recent placed stent. At this point, I would recommend coronary angiography plus PCI. I di scussed the procedure in full detail with Mr. Rivera. The risks included but are not limited to the following: , stroke, AR, need for emergency surgery, loss of limb, bleeding, and infection, as well as a reaction to the dye causing kidney failure and needing long-term dialysis. I also discusse d the risks of PCI to include all of the above including coronary dissection and perforation in addit ion to acute stent thrombosis and restenosis. All questions were answered. Given the above, patient agreed to proceed with the above procedure.
[2017-09-06] MEDS ORDERED: Midazolam HCl 2 mg/2 ml Vial ONE (13:41)
[2017-09-06] MEDS ORDERED: Fentanyl 100 MCG/2 ML VIAL ONE (13:41)
[2017-09-06] MEDS ORDERED: Nitroglycerin 100MG/250ML BOT 250 ML ONE (13:51)
[2017-09-06] MEDS ORDERED: Heparin 10,000 UNITS/1 ML VIAL ONE (13:51)
[2017-09-06] MEDS ORDERED: Clopidogrel Bisulfate 300 MG TAB ONE (13:59)
--- NOTE | 2017-09-06 15:47 | CCL ---
ADDENDUM: 09/06/2017 Mr. Rivera was brought for angiography after having a recent non-Q-wave MT. He underwent angiography . He had a known lesion present within the LAD. He also had occlusion at a bifurcation of the dista l LAD. During angiography the stent appeared patent. The lesion in the LAD was noted. His vein graft to th e circumflex artery was patent, but the circumflex artery had diffuse disease present and the vessel appeared very small. We decided to proceed with stent placement to the mid and distal LAD. Prior to proceeding with stent placement, I did attempt passing a complete occlusion in the distal LAD. This was unsuccessful after multiple attempts. He underwent successful stent placement with a 2.25 x 12 mm Synergy stent. No immediate complications. POS: ZAN
[2017-09-06] MEDS: Atorvastatin Calcium 40 MG TAB PO SCH (20:12)
[2017-09-06] MEDS: HumaLOG 300 UNITS/3 ML VIAL SC PRN (21:24)
[2017-09-07 05:18] LABS: #Basophils 0.1 thou/uL (0.0-0.2); #Eosinphils 0.2 thou/uL (0.0-0.7); #Lymphocytes 1.7 thou/uL (1.20-3.40); #Monocytes 0.4 thou/uL (0.11-0.59); #Neutrophils 3.5 thou/uL (1.40-6.50); %Basophils 1.1 % (0.0-1.0); %Lymphocytes 29.2 % (21.0-51.0); %Monocytes 7.3 % (0.0-10.0); %Neutrophils 59.4 % (42.0-75.0); Hemoglobin 15.9 g/dL (14.0-18.0); Mean Corpuscular HGB CONC 33.8 g/dL (32.0-36.0); Mean Corpuscular Hemoglobin 32.8 pg (27.0-31.0); Mean Corpuscular Volume 97.2 fl (80.0-94.0); Mean Platelet Volume 7.6 fL (7.4-10.4); Platelet Count 184 thou/uL (130-400); RBC Distribution Width 12.6 % (11.5-14.5); Red Blood Cell (RBC) Count 4.85 mill/uL (4.70-6.10); White Blood Cell (WBC) Count 5.8 thou/uL (4.8-10.8)
[2017-09-07 05:47] LABS: ALT (SGPT) 12 U/L (8-55); AST (SGOT) 13 U/L (5-34); Albumin 2.9 g/dL (3.4-4.8); Alkaline Phosphatase 86 U/L (40-150); Anion Gap 17 mmol/L (10-20); BUN (Urea Nitrogen) 12 mg/dL (8.4-25.7); Bilirubin, Total 1.1 mg/dL (0.2-1.2); Calc. Creatinine Clearance 107 mL/min (70-130); Calcium 8.9 mg/dL (7.8-10.44); Carbon Dioxide 19 mmol/L (23-31); Chloride 104 mmol/L (98-107); Estimated GFR-MDRD 73; Globulin 3.5 g/dL (2.4-3.5); Glucose 220 mg/dL (83-110); Potassium 3.6 mmol/L (3.5-5.1); Protein, Total 6.4 g/dL (5.8-8.1); Sodium 136 mmol/L (136-145)
[2017-09-07] MEDS: Clopidogrel Bisulfate 75 MG TAB PO SCH (08:57)
[2017-09-07] MEDS: Famotidine 20 MG TAB PO SCH ×2 (08:57→20:31)
[2017-09-07] MEDS: HumaLOG 300 UNITS/3 ML VIAL SC PRN ×4 (08:58→20:33)
--- NOTE | 2017-09-07 09:57 | PDOC.CTH ---
<Dagmar Lei - Last Filed: 09/07/17 10:00> Cardiology Progress Note - Subjective The pt seen and examined. No overnight events. No cardiac complaints. He has walked to bathroom without any cardiac symptoms. However, he has not walked with PT yet at this moment. - Objective Vital Signs Temp Pulse Resp BP Pulse Ox 09/07/17 08:53 97.9 F 93 148/79 H 09/07/17 07:57 97 18 181/106 H 98 09/07/17 04:52 97.5 F L 85 18 118/69 98 09/07/17 00:17 98.0 F 94 18 135/77 94 L Weight 250 lb 09/06/17 09/07/17 09/08/17 06:59 06:59 06:59 Intake Total 240 220 Output Total 350 350 Balance -110 -130 - Physical Examination General/Neuro: alert & oriented x3 Neck: no JVD present Lungs: CTA Heart: RRR Abdomen: soft Extremities: other: (No edema; Rt fem clean, no hematoma) - Telemetry Telemetry Rhythm: SR 90s with St depression - Labs Result Diagrams: 09/07/17 04:35 09/07/17 04:35 Troponin/CKMB CK-MB (CK-2) 3.1 ng/mL (0-6.6) 09/06/17 04:58 Troponin I 2.657 ng/mL (< 0.028) H* 09/06/17 04:58 - Assessment/Plan 1. NTEM w/ S/p SYNERGY stent x1 to distal LAD on 09/06/17 - stable; On Plavix, ASA 81mg, and Statin; start Coreg 6.25mg BID 2. CAD with Hx of CABGx2, stent in 06/2017 - stable with current medication; cont. to monitor 3. Hx of Parox. Afib - remain in SR; cont. monitor on tele 4. HTN - start Coreg 6.25mg BID 5. Chronic systolic HF with EF 35% - stable with RA 6. CKD stage 3 - within normal range; 7. Hyperlipidemia - On Statin MAR reviewed * November d/c home tomorrow AM Review of Systems - Review of Systems Constitutional: reports: no symptoms reported EENTM: reports: no symptoms reported Respiratory: reports: no symptoms reported Cardiac (ROS): reports: no symptoms reported ABD/GI: reports: no symptoms reported : reports: no symptoms reported Musculoskeletal: reports: no symptoms reported Skin: reports: no symptoms reported <Yissel Bob - Last Filed: 09/07/17 16:48> Cardiology Progress Note - Objective Vital Signs Temp Pulse Pulse Pulse Resp BP BP 09/07/17 16:32 97.7 F 84 20 09/07/17 12:03 91 100 137/86 175/84 H 09/07/17 11:37 97.8 F 88 18 09/07/17 09:00 97.9 F 93 18 09/07/17 08:53 97.9 F 93 09/07/17 07:57 97 18 09/07/17 04:52 97.5 F L 85 18 BP BP BP Pulse Ox Pulse Ox Pulse Ox 09/07/17 16:32 166/88 H 97 09/07/17 12:03 97 97 09/07/17 11:37 123/80 97 09/07/17 09:00 98 09/07/17 08:53 148/79 H 09/07/17 07:57 181/106 H 98 09/07/17 04:52 118/69 98 Weight 250 lb 09/06/17 09/07/17 09/08/17 06:59 06:59 06:59 Intake Total 240 220 Output Total 350 350 Balance -110 -130 - Labs Result Diagrams: 09/07/17 04:35 09/07/17 04:35 Troponin/CKMB CK-MB (CK-2) 3.1 ng/mL (0-6.6) 09/06/17 04:58 Troponin I 2.657 ng/mL (< 0.028) H* 09/06/17 04:58 - Assessment/Plan Pt. seen and eval. by me. He complains of significant SOB. He has lower leg edema. He denies chest pain. I have reviewed the echo and the cardiac cath. The EF is decreased, the distal LAD is occluded with minimal collateral filling. he has CHF symptoms. He was started on betablockers this AM. I will add lasix and lisinopril.If he is stable then probably home tomorrow. He will need to f/u with Dr. Lechuga in the next couple weeks. He may eventually need an AICD. Will need to consider a life-vest. otherwise i agree with the A/P bu the FLOW NURSE .
[2017-09-07] MEDS ORDERED: Carvedilol 6.25 MG TAB PO SCH (10:15)
--- NOTE | 2017-09-07 12:07 | PDOC.PN ---
- Subjective Encounter Start Date: 09/07/17 Encounter Start Time: 08:20 Pt seen for followup re: NSTEMI. Denies chest pain, shortness of breath, fevers or chills. - Objective Resuscitation Status: Resuscitation Status FULL:Full Resuscitation MAR Reviewed: Yes Vital Signs & Weight: Vital Signs (12 hours) Temp Pulse Resp BP BP Pulse Ox 09/07/17 11:37 97.8 F 88 18 123/80 97 09/07/17 09:00 97.9 F 93 18 98 09/07/17 08:53 97.9 F 93 148/79 H 09/07/17 07:57 97 18 181/106 H 98 09/07/17 04:52 97.5 F L 85 18 118/69 98 09/07/17 00:17 98.0 F 94 18 135/77 94 L Weight Weight 250 lb I&O: 09/06/17 09/07/17 09/08/17 06:59 06:59 06:59 Intake Total 240 220 Output Total 350 350 Balance -110 -130 Result Diagrams: 09/07/17 04:35 09/07/17 04:35 Additional Labs: Accuchecks 09/07/17 09/07/17 09/06/17 10:55 05:54 20:25 POC Glucose 245 H 222 H 283 H 09/06/17 09/06/17 17:13 11:13 POC Glucose 250 H 298 H EKG Reviewed by me: Yes (Tele: NSR) Phys Exam - Physical Examination Constitutional: NAD HEENT: PERRLA, moist MMs, sclera anicteric, oral pharynx no lesions Neck: no nodes, no JVD, supple, full ROM Respiratory: no wheezing, no rales, no rhonchi, clear to auscultation bilateral Cardiovascular: RRR, no rub Gastrointestinal: soft, non-tender, no distention, positive bowel sounds Musculoskeletal: pulses present Neurological: normal sensation, moves all 4 limbs dysarthria Psychiatric: normal affect Skin: no rash Dx/Plan (1) NSTEMI (non-ST elevated myocardial infarction) Code(s): I21.4 - NON-ST ELEVATION (NSTEMI) MYOCARDIAL INFARCTION Status: Acute Comment: likley demand ischemia from Ac CHF. S/P Cath and stenting 06/20/17 (2) DM type 2 (diabetes mellitus, type 2) Status: Chronic Qualifiers: Diabetes mellitus complication status: with unspecified complications (3) H/O: CVA (cerebrovascular accident) Code(s): Z86.73 - PRSNL HX OF TIA (TIA), AND CEREB INFRC W/O RESID DEFICITS Status: Chronic (4) HLD (hyperlipidemia) Code(s): E78.5 - HYPERLIPIDEMIA, UNSPECIFIED Status: Chronic (5) HTN (hypertension) Code(s): I10 - ESSENTIAL (PRIMARY) HYPERTENSION Status: Chronic (6) Obesity (BMI 30.0-34.9) Code(s): E66.9 - OBESITY, UNSPECIFIED Status: Chronic - Plan out of bed/ambulate * . s/p PCI with stents. Ambulate patient. Monitor vital signs, titrate antihypertensives as needed. Continue statin. Continue accuchecks, insulin sliding scale. Review of Systems - Review of Systems Constitutional: negative: fever, chills, sweats, weakness, malaise Respiratory: negative: Cough, Dry, Shortness of Breath, Hemoptysis, SOB with Excertion, Pleuritic Pain, Sputum, Wheezing Cardiovascular: negative: chest pain, palpitations, orthopnea, paroxysmal nocturnal dyspnea, edema, light headedness Gastrointestinal: negative: Nausea, Vomiting, Abdominal Pain, Diarrhea, Constipation, Melena, Hematochezia Genitourinary: negative: Dysuria, Frequency, Incontinence, Hematuria, Retention Skin: negative: Rash, Lesions, Gonzalo, Bruising - Medications/Allergies Allergies/Adverse Reactions: Allergies Allergy/AdvReac Type Severity Reaction Status Date / Time No Known Allergies Allergy Verified 09/06/17 00:14 Medications: Current Medications Acetaminophen (Tylenol) 1,000 mg PO Q6H PRN PRN Reason: Headache/Fever or Mild Pain Aspirin (Aspirin Chewable) 81 mg PO DAILY [facility] Last Admin: 09/07/17 08:57 Dose: 81 mg Atorvastatin Calcium (Lipitor) 40 mg PO QPM [facility] Last Admin: 09/06/17 20:12 Dose: 40 mg [facility] Clonidine (Catapres) 0.1 mg PO Q4H PRN PRN Reason: Systolic BP > 180 Last Admin: 09/06/17 20:11 Dose: 0.1 mg Clopidogrel Bisulfate (Plavix) 75 mg PO DAILY [facility] Last Admin: 09/07/17 08:57 Dose: 75 mg Dextrose/Water (Dextrose 50%) 25 gm SLOW IVP PRN PRN PRN Reason: Hypoglycemia Famotidine (Pepcid) 20 mg PO BID [facility] Last Admin: 09/07/17 08:57 Dose: 20 mg Glucagon (Glucagon) 1 mg IM PRN PRN PRN Reason: Hypoglycemia Hydralazine HCl (Apresoline) 10 mg SLOW IVP Q4H PRN PRN Reason: Systolic BP > 180 Dextrose/Water (D5w) 1,000 mls @ 0 mls/hr IV .Q0M PRN; As Directed PRN Reason: Hypoglycemia Insulin Human Lispro (Humalog) 0 units SC .MODERATE SLIDING SC PRN PRN Reason: Moderate Correctional Scale Last Admin: 09/07/17 11:42 Dose: 4 unit Insulin Human Lispro (Humalog) 0 units SC .BEDTIME SLIDING SC PRN PRN Reason: Bedtime Correctional Scale Last Admin: 09/06/17 21:24 Dose: 3 unit Nitroglycerin (Nitrostat) 0.4 mg SL Q5MIN PRN PRN Reason: Chest Pain Ondansetron HCl (Zofran Odt) 4 mg PO Q6H PRN PRN Reason: Nausea/Vomiting Ondansetron HCl (Zofran) 4 mg IVP Q6H PRN PRN Reason: Nausea/Vomiting Sodium Chloride (Flush - Normal Saline) 10 ml IVF Q12HR [facility] Last Admin: 09/07/17 08:58 Dose: 10 ml Sodium Chloride (Flush - Normal Saline) 10 ml IVF PRN PRN PRN Reason: Saline Flush
--- NOTE | 2017-09-07 15:41 | EKG ---
Test Reason : CP Blood Pressure : / mmHG Vent. Rate : 079 BPM Atrial Rate : 081 BPM P-R Int : 216 ms QRS Dur : 128 ms QT Int : 428 ms P-R-T Axes : 064 -16 135 degrees QTc Int : 490 ms Sinus rhythm with marked sinus arrhythmia with 1st degree A-V block Left ventricular hypertrophy with QRS widening and repolarization abnormality Abnormal ECG No changes Confirmed by GINGER NICK MD ([id number]), continuity editor CORBY WORTHINGTON ([id number]) on 09/07/2017 3:41:13 PM Referred By: Confirmed By:GINGER NICK MD
[2017-09-07] MEDS: Carvedilol 6.25 MG TAB PO SCH (16:35)
[2017-09-07] MEDS ORDERED: Furosemide 20 MG/2 ML VIAL SLOW IVP SCH (17:00)
[2017-09-07] MEDS: Lisinopril 5 MG TAB PO SCH (20:31)
[2017-09-07] MEDS: Atorvastatin Calcium 40 MG TAB PO SCH (20:32)
[2017-09-08 05:56] LABS: Anion Gap 17 mmol/L (10-20); BUN (Urea Nitrogen) 13 mg/dL (8.4-25.7); Calc. Creatinine Clearance 108 mL/min (70-130); Carbon Dioxide 20 mmol/L (23-31); Chloride 103 mmol/L (98-107); Estimated GFR-MDRD 74; Glucose 149 mg/dL (83-110); Potassium 3.5 mmol/L (3.5-5.1); Sodium 136 mmol/L (136-145)
[2017-09-08] MEDS ORDERED: Potassium Chloride 20 MEQ TAB PO SCH (08:00)
[2017-09-08] MEDS ORDERED: Chloraseptic Spray 180 ml Bottle PO PRN (08:48)
[2017-09-08] MEDS ORDERED: Senokot 8.6 MG TAB PO PRN (08:48)
[2017-09-08] MEDS ORDERED: Diabetic Tussin 200 MG/10 ML UDCUP PO PRN (08:48)
[2017-09-08] MEDS ORDERED: Temazepam 15 MG CAP PO PRN (08:48)
[2017-09-08] MEDS ORDERED: Sodium Chloride 0.65% Nasal 44 ML BOT EA NARE PRN (08:48)
[2017-09-08] MEDS ORDERED: Milk Of Magnesia 30 ML UDCUP PO PRN (08:48)
[2017-09-08] MEDS ORDERED: Mag-Al 1200 mg/1200 mg/30 ML UDCUP PO PRN (08:48)
[2017-09-08] MEDS ORDERED: Furosemide 40 MG TAB PO SCH (09:00)
[2017-09-08] MEDS: Lisinopril 5 MG TAB PO SCH (10:47)
[2017-09-08] MEDS: Clopidogrel Bisulfate 75 MG TAB PO SCH (10:47)
[2017-09-08] MEDS: Carvedilol 6.25 MG TAB PO SCH (10:48)
[2017-09-08] MEDS: Famotidine 20 MG TAB PO SCH (10:48)
--- NOTE | 2017-09-08 10:53 | PDOC.PN ---
- Subjective Encounter Start Date: 09/08/17 Encounter Start Time: 07:50 -: old records requested/rev this morning pt is doing ok, but he was slightly emotional and confused, he was well dressed to go home, but per nursing he was confused - Objective Resuscitation Status: Resuscitation Status FULL:Full Resuscitation MAR Reviewed: Yes Vital Signs & Weight: Vital Signs (12 hours) Temp Pulse Resp BP BP BP Pulse Ox 09/08/17 10:48 129/79 09/08/17 10:47 64 09/08/17 04:57 98.0 F 64 14 128/68 96 09/07/17 23:15 97.9 F 69 15 133/73 92 L Weight Weight 250 lb I&O: 09/07/17 09/08/17 09/09/17 06:59 06:59 06:59 Intake Total 220 1760 Output Total 350 712 Balance -130 1048 Result Diagrams: 09/07/17 04:35 09/08/17 04:28 Additional Labs: Accuchecks 09/08/17 09/07/17 09/07/17 05:45 20:00 16:34 POC Glucose 158 H 255 H 253 H 09/07/17 10:55 POC Glucose 245 H Phys Exam - Physical Examination Constitutional: NAD HEENT: PERRLA, moist MMs, sclera anicteric Neck: no JVD, supple Respiratory: no wheezing, no rales, no rhonchi Cardiovascular: RRR, no significant murmur, no rub Gastrointestinal: soft, non-tender, no distention, positive bowel sounds Musculoskeletal: no edema, pulses present Neurological: non-focal, normal sensation, moves all 4 limbs Psychiatric: normal affect, A&O x 3 Skin: no rash, normal turgor Dx/Plan (1) Acute on chronic systolic (congestive) heart failure Code(s): I50.23 - ACUTE ON CHRONIC SYSTOLIC (CONGESTIVE) HEART FAILURE Status : Acute (2) NSTEMI (non-ST elevated myocardial infarction) Code(s): I21.4 - NON-ST ELEVATION (NSTEMI) MYOCARDIAL INFARCTION Status: Acute (3) 3-vessel coronary artery disease Status: Chronic (4) DM type 2 (diabetes mellitus, type 2) Status: Chronic Qualifiers: Diabetes mellitus complication status: with unspecified complications (5) H/O: CVA (cerebrovascular accident) Code(s): Z86.73 - PRSNL HX OF TIA (TIA), AND CEREB INFRC W/O RESID DEFICITS Status: Chronic (6) HLD (hyperlipidemia) Code(s): E78.5 - HYPERLIPIDEMIA, UNSPECIFIED Status: Chronic (7) HTN (hypertension) Code(s): I10 - ESSENTIAL (PRIMARY) HYPERTENSION Status: Chronic (8) Obesity (BMI 30.0-34.9) Code(s): E66.9 - OBESITY, UNSPECIFIED Status: Chronic (9) Paroxysmal a-fib Code(s): I48.0 - PAROXYSMAL ATRIAL FIBRILLATION Status: Chronic Comment: not on any anticoagulation (10) Tobacco dependence Code(s): F17.200 - NICOTINE DEPENDENCE, UNSPECIFIED, UNCOMPLICATED Status: Chronic - Plan cont current plan of care * given his confusion this morning, will prefer to observe him for while * he does not have any neurological deficit * medication reviewed as below * symptomatic treatment * otherwise stable from cardiac perspective. Review of Systems - Review of Systems ENT: negative: Ear Pain, Ear Discharge, Nose Pain, Nose Discharge, Nose Congestion, Mouth Pain, Mouth Swelling, Throat Pain, Throat Swelling, Other Respiratory: negative: Cough, Dry, Shortness of Breath, Hemoptysis, SOB with Excertion, Pleuritic Pain, Sputum, Wheezing Cardiovascular: negative: chest pain, palpitations, orthopnea, paroxysmal nocturnal dyspnea, edema, light headedness, other Gastrointestinal: negative: Nausea, Vomiting, Abdominal Pain, Diarrhea, Constipation, Melena, Hematochezia, Other Genitourinary: negative: Dysuria, Frequency, Incontinence, Hematuria, Retention , Other Musculoskeletal: negative: Neck Pain, Shoulder Pain, Arm Pain, Back Pain, Hand Pain, Leg Pain, Foot Pain, Other - Medications/Allergies Allergies/Adverse Reactions: Allergies Allergy/AdvReac Type Severity Reaction Status Date / Time No Known Allergies Allergy Verified 09/06/17 00:14 Medications: Current Medications Acetaminophen (Tylenol) 1,000 mg PO Q6H PRN PRN Reason: Headache/Fever or Mild Pain Al Hydroxide/Mg Hydroxide (Maalox) 15 ml PO Q4H PRN PRN Reason: Heartburn or Indigestion Aspirin (Aspirin Chewable) 81 mg PO DAILY [facility] Last Admin: 09/08/17 10:48 Dose: 81 mg Atorvastatin Calcium (Lipitor) 40 mg PO QPM [facility] Last Admin: 09/07/17 20:32 Dose: 40 mg Carvedilol (Coreg) 6.25 mg PO BID[facility] Last Admin: 09/08/17 10:48 Dose: 6.25 mg Clonidine (Catapres) 0.1 mg PO Q4H PRN PRN Reason: Systolic BP > 180 Last Admin: 09/06/17 20:11 Dose: 0.1 mg Clopidogrel Bisulfate (Plavix) 75 mg PO DAILY [facility] Last Admin: 09/08/17 10:47 Dose: 75 mg Dextrose/Water (Dextrose 50%) 25 gm SLOW IVP PRN PRN PRN Reason: Hypoglycemia Famotidine (Pepcid) 20 mg PO BID [facility] Last Admin: 09/08/17 10:48 Dose: 20 mg Furosemide (Lasix) 40 mg PO DAILY [facility] Last Admin: 09/08/17 10:48 Dose: 40 mg Glucagon (Glucagon) 1 mg IM PRN PRN PRN Reason: Hypoglycemia Guaifenesin (Robitussin Sf) 200 mg PO Q4H PRN PRN Reason: Cough Hydralazine HCl (Apresoline) 10 mg SLOW IVP Q4H PRN PRN Reason: Systolic BP > 180 Dextrose/Water (D5w) 1,000 mls @ 0 mls/hr IV .Q0M PRN; As Directed PRN Reason: Hypoglycemia Insulin Human Lispro (Humalog) 0 units SC .MODERATE SLIDING SC PRN PRN Reason: Moderate Correctional Scale Last Admin: 09/07/17 16:36 Dose: 6 unit Insulin Human Lispro (Humalog) 0 units SC .BEDTIME SLIDING SC PRN PRN Reason: Bedtime Correctional Scale Last Admin: 09/07/17 20:33 Dose: 3 unit Lisinopril (Zestril) 5 mg PO BID [facility] Last Admin: 09/08/17 10:47 Dose: 5 mg Magnesium Hydroxide (Milk Of Magnesium) 30 ml PO DAILYPRN PRN PRN Reason: Constipation Nitroglycerin (Nitrostat) 0.4 mg SL Q5MIN PRN PRN Reason: Chest Pain Ondansetron HCl (Zofran Odt) 4 mg PO Q6H PRN PRN Reason: Nausea/Vomiting Ondansetron HCl (Zofran) 4 mg IVP Q6H PRN PRN Reason: Nausea/Vomiting Phenol (Chloraseptic [place] 180 Ml Bot) 0 ml PO PRN PRN PRN Reason: Sore Throat Potassium Chloride (K-Dur) 20 meq PO QAM-WM [facility] Last Admin: 09/08/17 10:48 Dose: 20 meq Senna (Senokot) 2 tab PO HSPRN PRN PRN Reason: Constipation Sodium Chloride (Flush - Normal Saline) 10 ml IVF Q12HR [facility] Last Admin: 09/08/17 10:50 Dose: 10 ml Sodium Chloride (Flush - Normal Saline) 10 ml IVF PRN PRN PRN Reason: Saline Flush Sodium Chloride ([place] Nasal [place] 0.65%) 0 ml EA NARE QIDPRN PRN PRN Reason: Nasal Congestion Temazepam (Restoril) 15 mg PO HSPRN PRN PRN Reason: Insomnia
[2017-09-08 11:33] VITALS: TEMP 98
[2017-09-08 11:34] VITALS: BP 129/60
--- NOTE | 2017-09-08 11:52 | PDOC.CTH ---
Cardiology Progress Note - Subjective The pt seen and examined. No overnight events. No cardiac complaints. He walked with PT this AM without difficulties. He is confused the situation. He still cannot recall why he is in the hospital or what kind procedure he underwent. - Objective Vital Signs Temp Pulse Pulse Pulse Resp BP BP 09/08/17 10:48 129/79 09/08/17 10:47 64 09/08/17 10:16 72 73 129/60 09/08/17 08:00 98 F 79 18 09/08/17 04:57 98.0 F 64 14 BP BP Pulse Ox Pulse Ox Pulse Ox 09/08/17 10:48 09/08/17 10:47 09/08/17 10:16 117/60 93 L 94 L 09/08/17 08:00 129/79 09/08/17 04:57 128/68 96 Weight 250 lb 09/07/17 09/08/17 09/09/17 06:59 06:59 06:59 Intake Total 220 1760 Output Total 350 712 Balance -130 1048 - Physical Examination General/Neuro: alert & oriented x3, other: (pls see HPI) Neck: no JVD present Lungs: other: (diminished at bases) Heart: RRR Abdomen: soft Extremities: other: (1+ pitting BLE edema) - Telemetry Telemetry Rhythm: SR, 1st AVB, BBB - Labs Result Diagrams: 09/07/17 04:35 09/08/17 04:28 Troponin/CKMB CK-MB (CK-2) 3.1 ng/mL (0-6.6) 09/06/17 04:58 Troponin I 2.657 ng/mL (< 0.028) H* 09/06/17 04:58 - Assessment/Plan 1. NTEM w/ S/p SYNERGY stent x1 to distal LAD on 09/06/17 - stable; On Plavix, ASA 81mg, Coreg 6.25mg BID, Lisinopril 5mg BID, and Statin 2. CAD with Hx of CABGx2, stent in 06/2017 and 09/06/17 - stable with current medication; cont. to monitor 3. Hx of Parox. Afib - remain in SR; cont. monitor on tele 4. HTN - stable with Coreg 6.25mg BID and Lisinopril 5mg BID. 5. Chronic systolic HF with EF 35% - stable with Lasix 40mg daily. His LifeVest was ordered in 05/2017; however, he has not worn since and refused to wear today. 6. CKD stage 3 - within normal range; cont. monitor 7. Hyperlipidemia - On Statin 8. Confusion - The pt is alerted and oriented to self and place, but he still cannot recall the reason of this admission or which procedure he underwent. MAR reviewed * November d/c home tomorrow AM <Addendum> The pt was d/neto before the pt's LifeVest education and f/u education given by cardiology service. Staff from Dr Pearson's office will call the pt. Review of Systems - Review of Systems Constitutional: reports: no symptoms reported EENTM: reports: no symptoms reported Respiratory: reports: no symptoms reported Cardiac (ROS): reports: no symptoms reported ABD/GI: reports: no symptoms reported : reports: no symptoms reported Musculoskeletal: reports: no symptoms reported Skin: reports: no symptoms reported
--- NOTE | 2017-09-08 12:36 | DIS ---
DATE OF ADMISSION: 09/05/2017 DATE OF DISCHARGE: 09/08/2017 PRIMARY CARE PHYSICIAN: Dr. Amanda Chaney. DISCHARGE DISPOSITION: Home. PRIMARY DISCHARGE DIAGNOSES: Acute on chronic systolic congestive heart failure, non-ST elevation my ocardial infarction, status post Synergy stent placement to left anterior descending. SECONDARY DISCHARGE DIAGNOSES: Tobacco abuse, paroxysmal atrial fibrillation, obesity with BMI 33, h ypertension, dyslipidemia, history of cerebrovascular accident, vascular dementia, diabetes type 2, t hree-vessel coronary artery disease. PRIMARY PROCEDURE/OPERATION: Cardiac catheterization with stent placement to mid LAD. RADIOLOGICAL INVESTIGATION: None. SIGNIFICANT LABORATORY DATA: WBC 5.8, hemoglobin 15.9, platelet 184. Sodium 136, potassium 3.5, BUN 13, creatinine 0.99, calcium 9.0. BNP 272.04. Ketones 1.17. DISCHARGE MEDICATIONS: Allopurinol 100 mg p.o. daily, aspirin 325 mg p.o. daily, Coreg 6.25 mg p.o. b.i.d., Plavix 75 mg p.o. daily, Pepcid 20 mg p.o. b.i.d., Proscar 5 mg p.o. at bedtime, Lasix 40 mg p.o. daily, glipizide 10 mg p.o. daily, lisinopril 5 mg p.o. b.i.d., nitroglycerin 0.4 mg sublingual p.r.n., MiraLax 17 grams p.o. daily, potassium chloride 20 mEq p.o. daily, Zocor 80 mg p.o. at bedtim e, Flomax 0.4 mg p.o. daily, testosterone as per directed. CONTRAINDICATIONS: None. CODE STATUS: FULL CODE. INPATIENT CONSULTANTS: Dr. Lechuga and Dr. Lechuga was consulted while in hospital. TEST RESULTS PENDING ON DISCHARGE: None. ALLERGIES: No known drug allergy. DISCHARGE PLAN: Post hospital, patient will follow up with primary care physician and Dr. Amanda Chaney. HOSPITAL COURSE: A 72-year-old male with above-mentioned medical problem who was admitted by Dr. Col herrera. Please see his H&P for further detail. Patient came to the ER with increasing shortness of breat h. This patient had a non-ST elevation [place] based on blood test. Cardiology was consulted and Dr. Vivek casas did cardiac catheterization and he was found with a block is in LAD, which required a Synergy stent placement. He has ischemic cardiomyopathy and his EF is 30% and this time a cardiac catheteriz ation reported as low EF. This patient required LifeVest before discharge, which was already arrange d. On the day of discharge, patient had a slight confusion episode, but that was rapidly improved. He did not have any focal neurological deficit. He is already on aspirin, Plavix, and statin therapy . This patient does have an important thing to do at home and that is why her family member are okay to go home today. Patient is seen and examined at bedside today. Cardiology cleared him for discharge as well. Please see my progress note from today for further details. All new medication prescription given to his p david.
--- NOTE | 2017-09-08 15:32 | EKG ---
Test Reason : Blood Pressure : / mmHG Vent. Rate : 090 BPM Atrial Rate : 090 BPM P-R Int : 222 ms QRS Dur : 128 ms QT Int : 410 ms P-R-T Axes : 049 091 -61 degrees QTc Int : 501 ms Sinus rhythm with 1st degree A-V block with Premature atrial complexes Rightward axis Non-specific intra-ventricular conduction block T wave abnormality, consider inferolateral ischemia Abnormal ECG Confirmed by DR. Gurmeet MONSON ([id number]) on 09/08/2017 3:32:00 PM Referred By: Confirmed By:DR. Gurmeet MONSON
--- NOTE | 2017-09-08 15:34 | EKG ---
Test Reason : Blood Pressure : / mmHG Vent. Rate : 093 BPM Atrial Rate : 093 BPM P-R Int : 224 ms QRS Dur : 126 ms QT Int : 398 ms P-R-T Axes : 059 -31 125 degrees QTc Int : 494 ms Sinus rhythm with 1st degree A-V block with Premature atrial complexes with Abberant conduction Left axis deviation Left ventricular hypertrophy with QRS widening T wave abnormality, consider lateral ischemia Abnormal ECG When compared with ECG of 06-SEP-2017 15:28, (Unconfirmed) QRS axis Shifted left T wave inversion no longer evident in Inferior leads T wave inversion more evident in Lateral leads Confirmed by DR. Gurmeet MONSON ([id number]) on 09/08/2017 3:33:38 PM Referred By: ELISABETH Confirmed By:DR. Gurmeet MONSON
--- NOTE | 2017-09-09 14:09 | PDOC.EVN ---
Event Note - Event Note Event Note: pt has h/o PAF, but not on anticoagulation as pt is on dual antiplatelet and with anticoagulant, he is high risk for bleeding, so contraindicated, and not on that
== END 2017-09-08 14:23 | disposition home or self-care (01) | DRG 246 ==
LOC: ERS 21:44 → 2NO 23:36
PROVIDERS: ADMIT Family Medicine; ATTEND Family Medicine
PROC: 4A023N7 Measurement of Cardiac Sampling and Pressure, Left Heart, Percutaneous Approach (ICD-10-PCS; principal; 2017-09-06)
PROC: 027034Z Dilation of Coronary Artery, One Artery with Drug-eluting Intraluminal Device, Percutaneous Approach (ICD-10-PCS; 2017-09-06)
PROC: 02C03ZZ Extirpation of Matter from Coronary Artery, One Artery, Percutaneous Approach (ICD-10-PCS; 2017-09-06)
PROC: B2111ZZ Fluoroscopy of Multiple Coronary Arteries using Low Osmolar Contrast (ICD-10-PCS; 2017-09-06)
DX: I21.4 Non-ST elevation (NSTEMI) myocardial infarction (principal); I50.23 Acute on chronic systolic (congestive) heart failure; E11.22 Type 2 diabetes mellitus with diabetic chronic kidney disease; I48.0 Paroxysmal atrial fibrillation; I13.0 Hypertensive heart and chronic kidney disease with heart failure and stage 1 through stage 4 chronic kidney disease, or unspecified chronic kidney disease; Z95.5 Presence of coronary angioplasty implant and graft; E78.5 Hyperlipidemia, unspecified; Z79.82 Long term (current) use of aspirin; Z79.01 Long term (current) use of anticoagulants; N18.3 Chronic kidney disease, stage 3 (moderate); I25.10 Atherosclerotic heart disease of native coronary artery without angina pectoris; I25.5 Ischemic cardiomyopathy; Z79.84 Long term (current) use of oral hypoglycemic drugs; F17.210 Nicotine dependence, cigarettes, uncomplicated; F01.50 Vascular dementia, unspecified severity, without behavioral disturbance, psychotic disturbance, mood disturbance, and anxiety; Z95.1 Presence of aortocoronary bypass graft; E66.9 Obesity, unspecified; Z68.30 Body mass index [BMI] 30.0-30.9, adult
CPT/HCPCS: 36415; 36416; 76942; 80048; 80053; 82010; 82330; 82553; 82803; 83880; 84484; 85025; 85347; 90471; 90670; 90682; 92941; 93005; 93010; 93455; 93798; 94760; 96374; 99152; 99153; A4216; C1769; C1874; C9606; G0008; G0009; G8978-GP-CI; G8979-GP-CI; G8980-GP-CI; J1644; J1940; J2001; J2250; J3010; Q2036

== ENCOUNTER 2019-06-15 12:15 | Inpatient (IN) | payer MEDICARE, MEDICAID ==
[~2019-06-15 12:15] MED LIST changes: -ISOVUE-370 76%-LOCM 1 ML ONE; +Iopamidol-370 76% 500 ML 1 ML ONE
--- NOTE | 2019-06-15 13:08 | RAD ---
Chest one view HISTORY: Dyspnea. Cough. COMPARISON: 09/05/2017. FINDINGS: Left cardiac margin is now obscured by dense infiltrates and pleural fluid. Mediastinum rem ains midline with postoperative changes. Pulmonary vasculature remains slightly engorged. Right lung is well-inflated. IMPRESSION: Dense left basilar infiltrate, likely with superimposed pleural fluid. Cause is not evide nt.
[2019-06-15 13:12] LABS: #Eosinphils 0.2 thou/uL (0.0-0.7); #Lymphocytes 1.2 thou/uL (1.20-3.40); #Monocytes 0.4 thou/uL (0.11-0.59); #Neutrophils 3.8 thou/uL (1.40-6.50); %Basophils 0.4 % (0.0-1.0); %Eosinophils 2.7 % (0.0-10.0); %Lymphocytes 21.2 % (21.0-51.0); %Monocytes 7.4 % (0.0-10.0); %Neutrophils 68.3 % (42.0-75.0); Hemoglobin 14.7 g/dL (14.0-18.0); Mean Corpuscular HGB CONC 32.4 g/dL (32.0-36.0); Mean Corpuscular Hemoglobin 31.9 pg (27.0-31.0); Mean Corpuscular Volume 98.2 fL (78.0-98.0); Platelet Count 136 thou/uL (130-400); RBC Distribution Width 13.5 % (11.5-14.5); White Blood Cell (WBC) Count 5.6 thou/uL (4.8-10.8)
[2019-06-15 13:39] LABS: ALT (SGPT) 9 U/L (8-55); AST (SGOT) 8 U/L (5-34); Albumin 3.3 g/dL (3.4-4.8); Alkaline Phosphatase 79 U/L (40-110); Anion Gap 15 mmol/L (10-20); BUN (Urea Nitrogen) 19 mg/dL (8.4-25.7); Bilirubin, Total 0.8 mg/dL (0.2-1.2); Calc. Creatinine Clearance 0 mL/min (70-130); Calcium 8.7 mg/dL (7.8-10.44); Carbon Dioxide 24 mmol/L (23-31); Chloride 109 mmol/L (98-107); Estimated GFR-MDRD 73; Globulin 3.6 g/dL (2.4-3.5); Glucose 132 mg/dL (83-110); Potassium 4.2 mmol/L (3.5-5.1); Protein, Total 6.9 g/dL (5.8-8.1); Sodium 144 mmol/L (136-145)
[2019-06-15] MEDS ORDERED: Nitroglycerin 2% Ointment 1 INCH/1 GM Packet ONE (15:45)
[2019-06-15] MEDS ORDERED: cefTRIAXone\\ROCEPHIN 1 GM VIAL ONE (15:45)
[2019-06-15] MEDS ORDERED: Furosemide 40 MG/4 ML VIAL ONE (15:45)
[2019-06-15] MEDS ORDERED: Azithromycin 250 MG TAB ONE (15:45)
[2019-06-15] MEDS ORDERED: Acetaminophen 325 MG TAB PO PRN (15:57)
[2019-06-15] MEDS ORDERED: Senokot S 8.6-50 MG TAB PO PRN (15:57)
[2019-06-15 16:47] LABS: Troponin I 0.016 ng/mL (< 0.028)
[2019-06-15] MEDS ORDERED: Dextrose 50% Abboject 50 ML SYRINGE SLOW IVP PRN (18:56)
[2019-06-15] MEDS ORDERED: Dextrose 5% in Water 1,000 ML IV PRN (18:56)
[2019-06-15] MEDS ORDERED: HumaLOG 300 UNITS/3 ML VIAL SC PRN (18:56)
[2019-06-15] MEDS ORDERED: Lorazepam 0.5 MG TAB PO PRN (18:57)
--- NOTE | 2019-06-15 19:48 | PDOC.EVN ---
Event Note - Event Note Event Note: Patient seen and examined. Discussed with Nicole Dozier NP. Patient presented with SOB. In afib with RVR. Has hx of PAF. He is not on anticoagulation. He has hx of cardiomyopathy and EF 30% in 2017. He did not and does not want a LifeVest or defibrillator. Heart is irregular and tachy. Rate is 115-120. He has no breath sounds on the LLL. Has CXR with LLL infiltrate. Concerning for effusion given exam and imaging. CT chest to further assess. Echo. Fernando.
[2019-06-15 20:00] LABS: Troponin I 0.016 ng/mL (< 0.028)
[2019-06-15] MEDS ORDERED: Diltiazem 125 MG in Sodium Chloride 0.9% 100 ML IVPB SCH (20:15)
--- NOTE | 2019-06-15 20:27 | CT ---
CT angiogram chest: 06/15/2019 COMPARISON: 06/19/2017. HISTORY: Pneumonia, shortness of breath TECHNIQUE: Axial CT imaging at 2.5 mm intervals through the chest with IV contrast using CT angiogram protocol with coronal and sagittal 3-D reformatted imaging FINDINGS: No axillary lymphadenopathy. Multiple nonspecific mildly enlarged mediastinal lymph nodes a re noted, including nodes in the prevascular space, right paratracheal region, AP window, and subcarinal region. Limited assessment of the upper abdomen demonstrate no acute findings. Moderate/large left pleural ef fusion. Trace right pleural effusion. Partial consolidation/collapse of the lingula. Near-complete consolidation/collapse of the left lower lobe with sparing of the superior segment. Motion artifact l imits assessment of the lung parenchyma. No pneumothorax seen. Mild patchy opacity noted in the inferior posterior right lower lobe. There is scattered atherosclerotic calcification of the thoracic aorta. There is significant scattere d coronary arterial calcification. Midline sternotomy wires are present. There is no evidence for a central pulmonary arterial embolism. Motion artifact limits assessment of the distal pulmonary arterial structures, particularly within the lower lobes. Review of the osseous structures demonstrates no worrisome lytic or blastic bone lesions. IMPRESSION: Moderate/large left-sided pleural effusion with partial consolidation/collapse of the josue gula and the left lower lobe suggesting multifocal infectious pneumonitis/aspiration. Follow-up imaging following treatment to document resolution advised. Patchy reticulonodular density in the rig ht lower lobe may signify infectious pneumonitis as well. No evidence for central pulmonary arterial embolism. Mediastinal lymphadenopathy, nonspecific, possib ly reactive in nature. This will be better assessed on follow-up imaging as well.
--- NOTE | 2019-06-15 20:56 | HP ---
PRIMARY CARE PHYSICIAN: Dr. Chaney. CHIEF COMPLAINT: Shortness of breath. HISTORY OF PRESENT ILLNESS: Mr. Rivera is a 74-year-old man with a past medical history pertinent for paroxysmal atrial fibrillation, chronic bladder calculi, BPH, chronic diastolic congestive heart failure with the last EF of 30% to 35% taken in 2017, bilateral lower edema, diabetes type 2, hyperlipidemia, hypertension, and has had a CVA in the past. The patient was sent here for the [facility] for nonproductive cough and shortness of breath. He denied any chest pain. He does report some orthopnea. EKG in the emergency room shows atrial fibrillation with controlled ventricular response, left axis, ST segments and T-waves are normal. The patient was given one nitroglycerin sublingual by EMS. Troponin x3 has been undetectable. BNP is 443. The patient's x-ray shows some dense left basilar infiltrates, likely superimposed pleural fluid, cause not evident. Pulmonary vasculature slightly engorged. Right lung is well inflated. The patient was given Rocephin and azithromycin in the emergency room. The patient admitted to telemetry for further management. The patient's code status is a DNR. This was verified with the halfway in [place] and reports that he also has an [id number] DNR. REVIEW OF SYSTEMS: CONSTITUTIONAL: Reports some orthopnea. Denies any chest pain or palpitations. Denies any fever or chills. Does report a dry cough. Does express some grief due to losing his 5 months ago. GI: Denies any abdominal pain, nausea, vomiting, or diarrhea. : Denies any dysuria. All other systems reviewed and are negative unless mentioned above or in the HPI. PAST MEDICAL HISTORY: See HPI. PAST SURGICAL HISTORY: Appendectomy, bladder stents, CABG x2 vessel. PSYCH HISTORY: None. SOCIAL HISTORY: Smokes three cigarettes a day. Denies any alcohol or drug use. PHYSICAL EXAMINATION: VITAL SIGNS: Blood pressure 145/104, pulse is 91, respirations are 24, temperature is 97.8, and pO2 sats are 94% on 3 L. GENERAL: The patient appears nontoxic. He is alert and oriented to person, place, and time. HEENT: Head is atraumatic and normocephalic. Eyes, pupils are equally round and reactive to light. ENT; mouth exam is normal. Mucous membranes are moist. NECK: Trachea is midline. No tenderness. Normal range of motion. RESPIRATORY: Chest; decreased lung sounds on the left base, bibasilar crackles. CARDIOVASCULAR: Irregularly irregular. Heart sounds are normal. ABDOMEN: Nontender. Bowel sounds are heard. BACK: Normal range of motion. No tenderness. EXTREMITIES: Upper extremity; normal range of motion. Motor strength is normal. Radial pulses are normal. Lower extremity; normal range of motion. Motor strength is normal. There is edema present, pitting. Pedal pulses are normal. NEUROLOGIC: The patient is oriented to person, place, and time. Speech is normal. SKIN: Warm, dry, normal in color. ASSESSMENT AND PLAN: 1. The patient with known congestive heart failure with an ejection fraction of 30% to 35% on the last echo in 2016. The patient will repeat the echocardiogram. The patient went into atrial fibrillation with rapid ventricular response while in the emergency room with the heart rate in 150s and then once resting, went down into the one teens. We will start a Cardizem drip. We will continue the Lasix. We will do the IV 40 mg IV push. We will also continue the Coreg. The patient is on Entresto that has been restarted. 2. Dyspnea, may be multifactorial. a. We will continue the azithromycin and Rocephin. A CTA has been ordered of the chest. 3. Hyperlipidemia. We will continue the home medications. 4. History of diabetes type 2. We will add Accu-Cheks before meals and at bedtime, add sliding scale insulin for coverage. 5. Deep vein thrombosis and gastrointestinal prophylaxis has been started. Job ID: [id number]
[2019-06-15] MEDS ORDERED: Divalproex Sodium 250 MG (DR) TAB ONE (21:46)
[2019-06-15] MEDS ORDERED: Famotidine 20 MG TAB ONE (21:46)
[2019-06-15] MEDS ORDERED: Enoxaparin Sodium 100 MG/ML SYRINGE ONE (21:47)
[2019-06-15] MEDS: Divalproex Sodium 125 mg Sprinkle Capsule PO SCH (21:50)
[2019-06-15] MEDS: Famotidine 20 MG TAB PO SCH (21:50)
[2019-06-15] MEDS: Enoxaparin Sodium 100 MG/ML SYRINGE SC SCH (22:02)
[2019-06-15] MEDS: Sacubitril 49 MG/Valsartan 51 MG TABLET PO SCH (22:27)
[2019-06-16] MEDS ORDERED: HumaLOG 300 UNITS/3 ML VIAL SC PRN ×2 (03:24)
[2019-06-16] MEDS ORDERED: Dextrose 50% Abboject 50 ML SYRINGE IVP PRN (03:24)
[2019-06-16] MEDS ORDERED: Dextrose 5% in Water 1,000 ML IV PRN (03:24)
[2019-06-16 04:01] VITALS: BMI 34.0
[2019-06-16 07:40] LABS: #Eosinphils 0.2 thou/uL (0.0-0.7); #Lymphocytes 1.2 thou/uL (1.20-3.40); #Monocytes 0.8 thou/uL (0.11-0.59); #Neutrophils 5.6 thou/uL (1.40-6.50); %Basophils 0.6 % (0.0-1.0); %Eosinophils 2.5 % (0.0-10.0); %Lymphocytes 15.3 % (21.0-51.0); %Monocytes 9.8 % (0.0-10.0); %Neutrophils 71.8 % (42.0-75.0); Hemoglobin 13.6 g/dL (14.0-18.0); Mean Corpuscular HGB CONC 33.3 g/dL (32.0-36.0); Mean Corpuscular Hemoglobin 32.3 pg (27.0-31.0); Mean Corpuscular Volume 96.9 fL (78.0-98.0); Mean Platelet Volume 7.3 fL (7.4-10.4); Platelet Count 122 thou/uL (130-400); RBC Distribution Width 13.3 % (11.5-14.5); Red Blood Cell (RBC) Count 4.22 mill/uL (4.70-6.10); White Blood Cell (WBC) Count 7.7 thou/uL (4.8-10.8)
[2019-06-16 07:51] LABS: ALT (SGPT) Less than 7 U/L (8-55); AST (SGOT) 6 U/L (5-34); Albumin 2.9 g/dL (3.4-4.8); Alkaline Phosphatase 66 U/L (40-110); Anion Gap 11 mmol/L (10-20); BUN (Urea Nitrogen) 15 mg/dL (8.4-25.7); Calc. Creatinine Clearance 124 mL/min (70-130); Calcium 8.2 mg/dL (7.8-10.44); Carbon Dioxide 28 mmol/L (23-31); Chloride 107 mmol/L (98-107); Estimated GFR-MDRD 89; Globulin 3.5 g/dL (2.4-3.5); Glucose 78 mg/dL (83-110); Potassium 3.1 mmol/L (3.5-5.1); Protein, Total 6.4 g/dL (5.8-8.1); Sodium 143 mmol/L (136-145)
[2019-06-16] MEDS: Carvedilol 3.125 MG TAB PO SCH ×2 (08:55→17:38)
[2019-06-16] MEDS: Famotidine 20 MG TAB PO SCH ×2 (08:55→21:11)
[2019-06-16] MEDS: Sacubitril 49 MG/Valsartan 51 MG TABLET PO SCH ×2 (08:55→21:11)
[2019-06-16] MEDS: Furosemide 40 MG/4 ML VIAL SLOW IVP SCH (08:55)
[2019-06-16] MEDS: Divalproex Sodium 125 mg Sprinkle Capsule PO SCH ×2 (08:55→21:10)
[2019-06-16] MEDS: Enoxaparin Sodium 100 MG/ML SYRINGE SC SCH ×2 (08:56→23:25)
[2019-06-16] MEDS ORDERED: Enoxaparin Sodium 40 MG/0.4 ML SYRINGE SC SCH (09:00)
[2019-06-16] MEDS ORDERED: Potassium Chloride 20 MEQ TAB PO SCH (09:00)
[2019-06-16] MEDS: cefTRIAXone\\ROCEPHIN 1 GM in Sodium Chloride 0.9% 100 ML IVPB SCH (14:16)
[2019-06-16] MEDS: Azithromycin 500 MG in Sodium Chloride 0.9% 250 ML 250 ML IVPB SCH (15:02)
--- NOTE | 2019-06-16 16:58 | PDOC.HOSPP ---
- Subjective Subjective: Doing ok. Feels like his breathing ok. Still has a cough. - Objective Vital Signs & Weight: Vital Signs (12 hours) Temp Pulse Pulse Pulse Resp BP BP 06/16/19 15:00 97.5 F L 75 20 06/16/19 11:31 97.6 F 87 18 06/16/19 11:10 87 63 118/81 138/81 06/16/19 08:40 97.6 F 84 20 06/16/19 08:00 BP Pulse Ox 06/16/19 15:00 130/89 100 06/16/19 11:31 145/68 H 100 06/16/19 11:10 06/16/19 08:40 145/80 H 95 06/16/19 08:00 95 Weight Admit Weight 251 lb 3 oz Weight 251 lb 3 oz I&O: 06/15/19 06/16/19 06/17/19 06:59 06:59 06:59 Intake Total 240 Output Total 525 Balance -285 Result Diagrams: 06/16/19 07:25 06/16/19 07:25 Additional Labs: Accuchecks 06/16/19 06/16/19 06/16/19 10:31 06:07 02:22 POC Glucose 109 78 79 Hospitalist ROS - Medication Medications: Active Medications Generic Name Dose Route Start Last Admin Trade Name Sen PRN Reason Stop Dose Admin Carvedilol 3.125 mg 06/16/19 08:00 06/16/19 08:55 Coreg PO 3.125 mg BID-WM FIOR Administration Divalproex Sodium 375 mg 06/15/19 21:00 06/16/19 08:55 Depakote Sprinkle PO 375 mg BID FIOR Administration Enoxaparin Sodium 100 mg 06/15/19 21:00 06/16/19 08:56 Lovenox SC 100 mg 0900,2100 FIOR Administration Famotidine 20 mg 06/15/19 21:00 06/16/19 08:55 Pepcid PO 20 mg BID FIOR Administration Furosemide 40 mg 06/16/19 09:00 06/16/19 08:55 Lasix SLOW IVP 40 mg DAILY FIOR Administration Azithromycin 500 mg/ Sodium 250 mls @ 250 mls/hr 06/16/19 15:00 06/16/19 15: 02 Chloride IVPB 250 mls Q24HR FIOR Administration Ceftriaxone Sodium 1 gm/ 100 mls @ 200 mls/hr 06/16/19 14:00 06/16/19 14:16 Sodium Chloride IVPB 100 mls Q24HR FIOR Administration Sacubitril/Valsartan 2 tab 06/15/19 21:00 06/16/19 08:55 Entresto 49 Mg-51 Mg Tablet PO 2 tab BID FIOR Administration - Exam General Appearance: NAD, awake alert Neck: supple, symmetric, no JVD, no thyromegaly, no lymphadenopathy, no carotid bruit Heart: RRR, no murmur, no gallops, no rubs, normal peripheral pulses Respiratory: no rales, no ronchi, normal chest expansion Respiratory - other findings: Witnessed cough. Gastrointestinal: soft, non-tender, non-distended, normal bowel sounds, no palpable masses Extremities: no cyanosis, no clubbing, 1+ LE edema (left slightly greater than right.) Hosp A/P (1) Ischemic cardiomyopathy Code(s): I25.5 - ISCHEMIC CARDIOMYOPATHY Status: Acute (2) Acute on chronic systolic (congestive) heart failure Code(s): I50.23 - ACUTE ON CHRONIC SYSTOLIC (CONGESTIVE) HEART FAILURE Status : Acute (3) 3-vessel coronary artery disease Status: Chronic (4) DM type 2 (diabetes mellitus, type 2) Status: Chronic Qualifiers: Diabetes mellitus complication status: with unspecified complications (5) H/O: CVA (cerebrovascular accident) Code(s): Z86.73 - PRSNL HX OF TIA (TIA), AND CEREB INFRC W/O RESID DEFICITS Status: Chronic (6) HLD (hyperlipidemia) Code(s): E78.5 - HYPERLIPIDEMIA, UNSPECIFIED Status: Chronic (7) HTN (hypertension) Code(s): I10 - ESSENTIAL (PRIMARY) HYPERTENSION Status: Chronic (8) Obesity (BMI 30.0-34.9) Code(s): E66.9 - OBESITY, UNSPECIFIED Status: Chronic (9) Paroxysmal a-fib Code(s): I48.0 - PAROXYSMAL ATRIAL FIBRILLATION Status: Chronic (10) Tobacco dependence Code(s): F17.200 - NICOTINE DEPENDENCE, UNSPECIFIED, UNCOMPLICATED Status: Chronic - Plan Dense LLL pleural effusion. Cover for pneumonia with Rocephin and Azithromycin. Treat CHF with diuretics, Coreg, after load reduction. Echo. Cardiology consult. Continue Entresto. Rate controlled afib with diltiazem. Therapeutic Lovenox. Blood sugars well controlled. Adequate BP control.
--- NOTE | 2019-06-16 19:09 | CON ---
DATE OF CONSULTATION: 06/16/2019 REASON FOR CONSULTATION: Shortness of breath and atrial fibrillation. HISTORY OF PRESENT ILLNESS: Mr. Rivera is a very pleasant 74-year-old white gentleman, who comes to the hospital for shortness of breath. He was [facility] from the [facility] for this. He was in rate controlled atrial fibrillation, suddenly went into RVR, had to be started on diltiazem, eventually went back to controlled atrial fibrillation. He was admitted for possibly an acute exacerbation of heart failure as well as atrial fibrillation. His BNP was only mildly elevated in the 400 range. He does have a history of ischemic cardiomyopathy with an EF around 30% to 35% last time he was evaluated in the office. He was offered an AICD and he refused. He states that he does not want anything done. He just wants to be left alone given medicines. Currently, he denies any chest pain, tightness, or pressure. PAST MEDICAL HISTORY: 1. Coronary artery disease, status post CABG x2. 2. Chronic kidney disease. 3. Hyperlipidemia. 4. History of atrial fibrillation. 5. BPH. 6. Chronic systolic heart failure, last EF at about 30% to 35%. 7. Hypertension. PAST SURGICAL HISTORY: 1. Appendectomy. 2. CABG x2 in 2017. 3. Status post stent to the LAD before the occlusion to perfuse diagonal, this was after bypass. ALLERGIES: NO KNOWN DRUG ALLERGIES. OUTPATIENT MEDICATIONS: 1. Levemir 25 units a day. 2. NovoLog. 3. Depakote. 4. Cymbalta. 5. Glucagon. 6. Metformin. 7. Vitamin B12. 8. Ipratropium. 9. Entresto 97/103 b.i.d. 10. Allopurinol. 11. Coreg 3.125 b.i.d. 12. Finasteride 5 mg at bedtime. 13. Famotidine. 14. Plavix 75 mg a day. 15. Sublingual nitroglycerin p.r.n. 16. Furosemide 20 mg b.i.d. 17. Simvastatin 80 mg at bedtime. 18. Potassium chloride 20 mEq b.i.d. 19. Tamsulosin. ALLERGIES: NO KNOWN DRUG ALLERGIES. SOCIAL HISTORY: No alcohol, tobacco, or drugs. He lives in a [facility]. FAMILY HISTORY: Positive for early coronary artery disease. REVIEW OF SYSTEMS: 12-point review of systems was done and was all negative unless stated in the history of present illness, however, he is confused. PHYSICAL EXAMINATION: VITAL SIGNS: Temperature 97.5, pulse 75, respiratory rate 20, saturating 100% on 3 L nasal cannula, blood pressure 130/89. GENERAL: Awake, alert, oriented to person, place, and time, but has lot of difficulty with this, in no distress. HEENT: Normocephalic and atraumatic. NECK: Supple. LUNGS: No breath sounds in the left base, normal in the right base. CARDIOVASCULAR: S1 and S2. There is a grade 2/6 systolic murmur at the right upper sternal border. ABDOMEN: Soft. Positive bowel sounds. EXTREMITIES: No edema. SKIN: Warm and dry. LABORATORY DATA: Laboratory work was reviewed. CBC with a white count of 5, hemoglobin of 14, hematocrit 45, and platelet count of 136. Chemistry was reviewed. Sodium 144; potassium 4.2, down to 3.1; chloride of 109; carbon dioxide, anion gap, BUN and creatinine are all normal; GFR 73; glucose of 132. Total bilirubin, AST , ALT, and alkaline phosphatase were normal. Troponin is normal x3. BNP was 443. Albumin of 3.3. IMAGING STUDIES: 1. EKG was reviewed. 2. CT of the chest was reviewed. He has a large pleural effusion on the left with associated atelectasis versus consolidation. Otherwise, clear lung levy. ASSESSMENT AND PLAN: 1. Acute on chronic systolic heart failure. most of his shortness of breath is likely related to the large amount of fluid on his left lung pleura. 2. Atrial fibrillation with rapid ventricular response. Currently, atrial fibrillation is rate controlled. 3. Chronic systolic heart failure. 4. Coronary artery disease, status post coronary artery bypass graft, stable at this time. No acute coronary syndrome. PLAN: 1. Agree with continued doses of IV Lasix, currently just one a day, 40 mg IV daily, I think it should be enough, I do not think that amount of effusion on the left lung is related to CHF, usually this is right-sided. I would probably want a sample of this to see if it is transudative versus exudative. If it is transudative, it is likely related to his low EF. 2. Agree with IV antibiotics per Primary Team. 3. Agree with full anticoagulation with Lovenox. Would not start any oral anticoagulants until it is certain that he is to either have or not have a thoracentesis. Thank you for letting us to participate in the care of your patient. We will continue to follow. Job ID: [id number] MTDD
[2019-06-17 05:10] LABS: Anion Gap 12 mmol/L (10-20); BUN (Urea Nitrogen) 19 mg/dL (8.4-25.7); Calc. Creatinine Clearance 116 mL/min (70-130); Calcium 8.5 mg/dL (7.8-10.44); Carbon Dioxide 28 mmol/L (23-31); Chloride 106 mmol/L (98-107); Estimated GFR-MDRD 81; Glucose 105 mg/dL (83-110); Potassium 3.4 mmol/L (3.5-5.1); Sodium 143 mmol/L (136-145)
[2019-06-17] MEDS: Divalproex Sodium 125 mg Sprinkle Capsule PO SCH ×2 (09:23→20:46)
[2019-06-17] MEDS: Enoxaparin Sodium 100 MG/ML SYRINGE SC SCH ×2 (09:24→20:47)
[2019-06-17] MEDS: Famotidine 20 MG TAB PO SCH ×2 (09:24→20:47)
[2019-06-17] MEDS: Carvedilol 3.125 MG TAB PO SCH ×2 (09:24→17:25)
[2019-06-17] MEDS: Sacubitril 49 MG/Valsartan 51 MG TABLET PO SCH ×2 (09:24→20:47)
[2019-06-17] MEDS: Furosemide 40 MG/4 ML VIAL SLOW IVP SCH (09:30)
--- NOTE | 2019-06-17 10:51 | PQF ---
CLINICAL DOCUMENTATION IMPROVEMENT CLARIFICATION FORM: ICD-10 Updated PLEASE DO AN ADDENDUM TO THE PROGRESS NOTE WITH ANY DOCUMENTATION UPDATES OR ADDITIONS AND CARRY THROUGH TO DC SUMMARY. THANK YOU. DATE: 06/17/19 ATTN: DR. ELLIS Please exercise your independent, professional judgment in responding to the clarification form. Clinical indicators are provided on the bottom of this form for your review Please check appropriate box(s) to clarify if the following diagnosis has been ruled in or ruled out: "PNEUMONIA" [ ] Ruled in diagnosis [ ] Continue to treat [ ] Resolved [ ] Ruled out diagnosis [ ] Cannot rule out diagnosis [ x ] Other diagnosis __Pneumonitis due to pleural effusion [ ] Unable to determine In addition, please specify: Present on Admission (POA): [ x ] Yes [ ] No [ ] Unable to determine For continuity of documentation, please document condition throughout progress notes and discharge summary. Thank You. CLINICAL INDICATORS - SIGNS / SYMPTOMS / LABS / RESULTS AND LOCATION IN MR ER NOTE: "CAP; PULMONARY EDEMA" CHEST XRAY 06/15: "LEFT CARDIAC MARGIN IS NOW OBSCURED BY DENSE INFILTRATES AND PLEURAL FLUID. PULMONARY VASCULATURE REMAINS SLIGHTLY ENGORGED." H&P 06/15: "DYSPNEA , MAY BE MULTIFACTORIAL" HOSPITALIST PROGRESS NOTE 06/16: "DENSE LLL PLEURAL EFFUSION; COVER FOR PNEUMONIA RISKS: H/O CHF (ER NOTE) AFIB WITH RVR (EVENT NOTE 06/15) H/O SMOKING (H&P 06/15) TREATMENT: IV ROCEPHIN (ER/06/16) PO AZITHROMYCIN (ER-06/16) CHEST XRAY 06/15 [employer] Win[employer](This form is maintained as a part of the permanent medical record) 2014 [employer]. All Rights Reserved [email or web address] Office: [phone] [facility]
--- NOTE | 2019-06-17 13:58 | PDOC.HOSPP ---
- Subjective Encounter Date: 06/17/19 Encounter Time: 14:45 Subjective: f/u for acute/chronic systolic CHF on current IV Lasix with large LLL pleural effusion on Rocephin/Zithromax. No new complaints. - Objective Vital Signs & Weight: Vital Signs (12 hours) Temp Pulse Pulse Pulse Resp BP BP 06/17/19 11:25 97.7 F 97 18 06/17/19 09:44 68 87 170/80 H 161/90 H 06/17/19 08:00 96.1 F L 73 22 H 06/17/19 03:25 97.3 F L 76 20 BP Pulse Ox Pulse Ox Pulse Ox 06/17/19 11:25 138/77 95 06/17/19 09:44 98 99 06/17/19 08:00 145/84 H 95 06/17/19 03:25 139/89 94 L Weight Admit Weight 251 lb 3 oz Weight 254 lb 1.6 oz I&O: 06/16/19 06/17/19 06/18/19 06:59 06:59 06:59 Intake Total 240 1200 Output Total 525 760 Balance -285 440 Result Diagrams: 06/16/19 07:25 06/17/19 04:31 Additional Labs: Accuchecks 06/17/19 06/17/19 06/16/19 10:21 05:25 20:18 POC Glucose 91 97 129 H 06/16/19 16:56 POC Glucose 122 H Laboratory Tests 06/18/17 09/05/17 09/08/17 20:40 18:40 09:18 B-Natriuretic Peptide 458.8 H 559.4 H 272.4 H 10/08/17 06/15/19 17:20 12:58 B-Natriuretic Peptide 178.3 H 443.1 H Radiology Reviewed by me: Yes (CT chest - mod LLL effusion with atelectasis, pneumonitis) EKG Reviewed by me: Yes (Tele - A-fib in 80's) Hospitalist ROS - Medication Medications: Active Medications Generic Name Dose Route Start Last Admin Trade Name Freq PRN Reason Stop Dose Admin Acetaminophen 650 mg 06/15/19 15:57 06/16/19 21:11 Tylenol PO 650 mg Q4H PRN Administration Headache/Fever/Mild Pain (1-3) Carvedilol 3.125 mg 06/16/19 08:00 06/17/19 09:24 Coreg PO 3.125 mg BID-WM FIOR Administration Divalproex Sodium 375 mg 06/15/19 21:00 06/17/19 09:23 Depakote Sprinkle PO 375 mg BID FIOR Administration Enoxaparin Sodium 100 mg 06/15/19 21:00 06/17/19 09:24 Lovenox SC 100 mg 0900,2100 FIOR Administration Famotidine 20 mg 06/15/19 21:00 06/17/19 09:24 Pepcid PO 20 mg BID FIOR Administration Furosemide 40 mg 06/16/19 09:00 06/17/19 09:30 Lasix SLOW IVP 40 mg DAILY FIOR Administration Azithromycin 500 mg/ Sodium 250 mls @ 250 mls/hr 06/16/19 15:00 06/16/19 15: 02 Chloride IVPB 250 mls Q24HR FIOR Administration Ceftriaxone Sodium 1 gm/ 100 mls @ 200 mls/hr 06/16/19 14:00 06/16/19 14:16 Sodium Chloride IVPB 100 mls Q24HR FIOR Administration Sacubitril/Valsartan 2 tab 06/15/19 21:00 06/17/19 09:24 Entresto 49 Mg-51 Mg Tablet PO 2 tab BID FIOR Administration Sodium Chloride 10 ml 06/15/19 15:57 06/17/19 09:25 Flush - Normal Saline IVF 10 ml PRN PRN Administration Saline Flush - Exam General Appearance: NAD, awake alert Eye: PERRL, anicteric sclera ENT: normocephalic atraumatic, no oropharyngeal lesions Neck: supple, symmetric, no JVD, no thyromegaly Heart: no murmur, no gallops, no rubs, normal peripheral pulses, irregular Respiratory: tachypneic Respiratory - other findings: diminished in LLL, few crackles Gastrointestinal: soft, non-tender, non-distended, normal bowel sounds, no palpable masses Extremities: no cyanosis, 1+ LE edema Skin: normal turgor, no lesions Neurological: cranial nerve grossly intact, no new deficit Musculoskeletal: normal tone, generalized weakness Psychiatric: oriented to person, oriented to place Hosp A/P (1) Pneumonitis Code(s): J18.9 - PNEUMONIA, UNSPECIFIED ORGANISM Status: Acute Plan: LLL involvement suspected, continue Rocephin/Zithromax, Bronchodilators, OOB/ ambulate (2) Ischemic cardiomyopathy Code(s): I25.5 - ISCHEMIC CARDIOMYOPATHY Status: Chronic Plan: EF in 20% range, continue Lasix IV, repeat Echo pending (3) Acute on chronic systolic (congestive) heart failure Code(s): I50.23 - ACUTE ON CHRONIC SYSTOLIC (CONGESTIVE) HEART FAILURE Status : Acute Plan: Continue IV Lasix, 2D echo pending, Resume Entresto (4) 3-vessel coronary artery disease Status: Chronic Plan: Continue Plavix, (5) DM type 2 (diabetes mellitus, type 2) Status: Chronic Qualifiers: Diabetes mellitus complication status: with unspecified complications (6) Atrial fibrillation Code(s): I48.91 - UNSPECIFIED ATRIAL FIBRILLATION Status: Chronic Plan: Continue rate-control strategy, Lovenox, 2D echo pending - Plan continue antibiotics, PT/OT, social group worker, respiratory therapy, out of bed/ ambulate, DVT proph w/SCDs Stable currently Continue Lasix 40mg IV daily Resume Plavix Continue Lovenox OOB with PT Continue Rocephin/Zithromax KCL supplementation Likely back to [facility] in 24-48h
[2019-06-17] MEDS: Azithromycin 500 MG in Sodium Chloride 0.9% 250 ML 250 ML IVPB SCH (15:04)
[2019-06-17] MEDS: cefTRIAXone\\ROCEPHIN 1 GM in Sodium Chloride 0.9% 100 ML IVPB SCH (15:07)
[2019-06-17] MEDS: Potassium Chloride 20 MEQ TAB PO SCH (17:25)
--- NOTE | 2019-06-17 17:25 | CON ---
DATE OF CONSULTATION: 06/17/2019 CONSULTING PHYSICIAN: Dr. Canas. REASON FOR CONSULTATION: Left pleural effusion. HISTORY OF PRESENT ILLNESS: This patient is a 74-year-old male, who was initially hospitalized on 06/15/2019 with increasing shortness of breath and atrial fibrillation. His BNP was elevated. He has a history of ischemic cardiomyopathy with EF of 30%. He has been treated with diuretics and states that he is now breathing better. He had a chest x-ray done at the time of admission, which showed a small to moderate left pleural effusion. This is also shown by a CT of the chest. PAST MEDICAL HISTORY: 1. Coronary artery disease. 2. Chronic kidney disease. 3. Hyperlipidemia. 4. Atrial fibrillation. 5. Prostatic hypertrophy. 6. Chronic systolic heart failure. 7. Hypertension. PAST SURGICAL HISTORY: 1. Appendectomy. 2. Coronary artery bypass grafting surgery x2. 3. LAD stent. ALLERGIES: NONE. MEDICATIONS: Prior to admission; 1. Levemir insulin. 2. NovoLog insulin. 3. Depakote. 4. Cymbalta. 5. Glucagon. 6. Metformin. 7. Vitamin B12. 8. Ipratropium. 9. Entresto. 10. Allopurinol. 11. Coreg. 12. Finasteride. 13. Famotidine. 14. Plavix. 15. Sublingual nitroglycerin. 16. Furosemide. 17. Simvastatin. 18. Potassium chloride. 19. Tamsulosin. FAMILY MEDICAL HISTORY: Unremarkable. REVIEW OF SYSTEMS: Twelve-point review of system otherwise negative. CURRENT INPATIENT MEDICATIONS: Reviewed, see chart. PHYSICAL EXAMINATION: VITAL SIGNS: Temperature 97.7, pulse 97, respirations 18, O2 saturation 95% on 2 L nasal cannula, and blood pressure 138/77. GENERAL: He is awake, alert, sitting up. He is in no distress. HEENT: Pupils are reactive. Sclerae icteric. Oropharynx clear. CARDIAC: S1 and S2. Irregularly irregular. NECK: No adenopathy or JVD. LUNGS: Mildly diminished breath sounds in the right base with some mild dullness to percussion in that region. Left side is clear. ABDOMEN: Soft, obese, nontender, and nondistended. EXTREMITIES: No clubbing or cyanosis. Trace pedal edema. LABORATORY DATA: Sodium 143, potassium 3.4, chloride 106, CO2 of 28, BUN 19, creatinine 0.9, and glucose 105. White blood cell count 7.7, hematocrit 40.9, and platelet count 122 with a normal differential. His BNP was elevated over 400. I reviewed his chest x-ray and CT of the chest. ASSESSMENT: 1. [id number] left pleural effusion in the phase of chronic systolic heart failure and atrial fibrillation. 2. Very doubtful that he has pneumonia. RECOMMENDATIONS: 1. I discussed diagnostic thoracentesis with the patient versus just repeating the x-ray and see where we are and continuing medical management. He has opted for medical management. An x-ray will be repeated tomorrow. 2. I doubt the patient has pneumonia and I would be very much in favor of stopping his antibiotics after 5-7 days. Job ID: [id number]
--- NOTE | 2019-06-17 19:02 | PDOC.CPN ---
- Subjective Date: 06/17/19 Time: 19:01 Interval history: He is refusing sales lead. He denies any issues. he states he feels well. - Review of Systems ROS unobtainable: due to mental status - Objective Allergies/Adverse Reactions: Allergies Allergy/AdvReac Type Severity Reaction Status Date / Time No Known Allergies Allergy Verified 06/16/19 03:59 Visit Medications: Current Medications Acetaminophen (Tylenol) 650 mg PO Q4H PRN PRN Reason: Headache/Fever/Mild Pain (1-3) Last Admin: 06/16/19 21:11 Dose: 650 mg Albuterol/Ipratropium (Duoneb) 3 ml NEB Q4H PRN PRN Reason: Shortness of breath Allopurinol (Zyloprim) 100 mg PO DAILY [facility] Atorvastatin Calcium (Lipitor) 40 mg PO HS [facility] Carvedilol (Coreg) 3.125 mg PO BID-[facility] Last Admin: 06/17/19 17:25 Dose: 3.125 mg Clopidogrel Bisulfate (Plavix) 75 mg PO DAILY [facility] Cyanocobalamin (Vitamin B-12) 1,000 mcg PO DAILY [facility] Dextrose/Water (Dextrose 50%) 25 gm SLOW IVP PRN PRN PRN Reason: Hypoglycemia Divalproex Sodium (Depakote Sprinkle) 375 mg PO BID [facility] Last Admin: 06/17/19 09:23 Dose: 375 mg Duloxetine HCl (Cymbalta) 30 mg PO DAILY [facility] Enoxaparin Sodium (Lovenox) 100 mg SC 0900,2100 [facility] Last Admin: 06/17/19 09:24 Dose: 100 mg Famotidine (Pepcid) 20 mg PO BID [facility] Last Admin: 06/17/19 09:24 Dose: 20 mg Finasteride (Proscar) 5 mg PO HS [facility] Furosemide (Lasix) 40 mg PO DAILY[facility] Glucagon (Glucagon) 1 mg IM PRN PRN PRN Reason: Hypoglycemia Dextrose/Water (D5w) 1,000 mls @ 0 mls/hr IV .Q0M PRN PRN Reason: Hypoglycemia Insulin Glargine 25 units/ (Miscellaneous Medication) 0.25 mls @ 0 mls/hr SC DAILY [facility] Insulin Human Lispro (Humalog) 0 units SC .MILD SLIDING SCALE PRN PRN Reason: Mild Correctional Scale Levofloxacin (Levaquin) 500 mg PO 0600 [facility] Metformin HCl (Glucophage) 500 mg PO QAM-WM [facility] Potassium Chloride (K-Dur) 20 meq PO BID-WM [facility] Last Admin: 06/17/19 17:25 Dose: 20 meq Sacubitril/Valsartan (Entresto 49 Mg-51 Mg Tablet) 2 tab PO BID [facility] Last Admin: 06/17/19 09:24 Dose: 2 tab Senna/Docusate Sodium (Senokot S) 2 tab PO BIDPRN PRN PRN Reason: Constipation Sodium Chloride (Flush - Normal Saline) 10 ml IVF PRN PRN PRN Reason: Saline Flush Last Admin: 06/17/19 09:25 Dose: 10 ml Tamsulosin HCl (Flomax) 0.4 mg PO DAILY [facility] Vital Signs & Weight: Vital Signs Temp Pulse Pulse Pulse Resp BP BP 06/17/19 11:25 97.7 F 97 18 06/17/19 09:44 68 87 170/80 H 161/90 H 06/17/19 08:00 96.1 F L 73 22 H BP Pulse Ox Pulse Ox Pulse Ox 06/17/19 11:25 138/77 95 06/17/19 09:44 98 99 06/17/19 08:00 145/84 H 95 Admit Weight 251 lb 3 oz Weight 254 lb 1.6 oz - Physical Exam General: appears well HEENT: mucus membranes moist Neck: supple neck Cardiac: regular rate and rhythm, systolic murmur Lungs: absent breath sounds Neuro: grossly intact Abdomen: non-tender Extremities: 1+ LE edema Skin: clear Musculoskeletal: no pain - Labs Result Diagrams: 06/16/19 07:25 06/17/19 04:31 Troponin/CKMB Troponin I 0.016 ng/mL (< 0.028) 06/15/19 19:26 - Telemetry Sinus rhythms and dysrhythmias: other (Refuses.) - Assessment/Plan Assessment/Plan: 1. Acute on chroniuc systolic CHF 2. Left sided pleural effusion PLAN: - Continue IV lasix for now. - Conservative management tpo see if pleural effusion improves with diuresis.
[2019-06-17] MEDS ORDERED: Non-Formulary Item 1 EACH (Sacubitril/Valsartan [Entresto 97 Mg-103 Mg Tablet] 1 EACH) PO SCH (21:00)
[2019-06-17] MEDS ORDERED: Atorvastatin Calcium 40 MG TAB PO SCH (21:00)
[2019-06-17] MEDS ORDERED: Finasteride 5 MG TAB PO SCH (21:00)
[2019-06-18] MEDS: Furosemide 40 MG TAB PO SCH ×2 (05:42→14:22)
[2019-06-18] MEDS ORDERED: Furosemide 40 MG/4 ML VIAL SLOW IVP SCH (06:00)
[2019-06-18] MEDS ORDERED: Furosemide 40 MG TAB PO SCH (07:30)
--- NOTE | 2019-06-18 07:47 | RAD ---
Chest AP view INDICATION: Pleural effusion COMPARISON: June 15, 2019 FINDINGS: Lungs:Airspace opacity in the left midlung and left lower lobe persists; however, there is slightly i mproved aeration of the left upper lobe. Right lung is clear. Cardiac silhouette:Cardiomegaly is stable. Midline sternotomy changes are stable Pulmonary vasculature:Normal Pleural spaces:No pleural effusion or pneumothorax is demonstrated. Upper abdomen:No abnormality seen. Osseous structures: No acute osseous abnormality. Additional findings:None. IMPRESSION: Left-sided pleural parenchymal opacity persists. There is slightly improved aeration of t he left upper lobe. Mild cardiomegaly is stable.
[2019-06-18] MEDS ORDERED: metFORMIN 500 MG TAB PO SCH (08:00)
[2019-06-18] MEDS: Sacubitril 49 MG/Valsartan 51 MG TABLET PO SCH (08:42)
[2019-06-18] MEDS: Famotidine 20 MG TAB PO SCH (08:42)
[2019-06-18] MEDS: Potassium Chloride 20 MEQ TAB PO SCH ×2 (08:43→17:35)
[2019-06-18] MEDS: Carvedilol 3.125 MG TAB PO SCH ×2 (08:44→17:36)
[2019-06-18] MEDS: Enoxaparin Sodium 100 MG/ML SYRINGE SC SCH (08:44)
[2019-06-18] MEDS ORDERED: Insulin Glargine 25 UNITS in Pre-Filled Syringe 1 EACH SC SCH (09:00)
[2019-06-18] MEDS ORDERED: Cyanocobalamin (Vitamin B-12) 1,000 MCG TAB PO SCH (09:00)
[2019-06-18] MEDS ORDERED: Allopurinol 100 MG TAB PO SCH (09:00)
[2019-06-18] MEDS ORDERED: DULoxetine 30 MG CAP PO SCH (09:00)
[2019-06-18] MEDS ORDERED: Tamsulosin HCl 0.4 MG CAP PO SCH (09:00)
[2019-06-18] MEDS ORDERED: Non-Formulary Item 1 EACH (Insulin Detemir [Levemir] 25 UNIT) SQ SCH (09:00)
[2019-06-18] MEDS ORDERED: Clopidogrel Bisulfate 75 MG TAB PO SCH (09:00)
--- NOTE | 2019-06-18 09:19 | PRG ---
DATE OF SERVICE: 06/18/2019 SUBJECTIVE: Mr. Rivera feels better, had no acute complaints. OBJECTIVE: VITAL SIGNS: His temperature 97.6, pulse 85, respirations 16, O2 saturation 91% on room air, blood pressure 164/78. HEENT: Unremarkable. NECK: No adenopathy or JVD. LUNGS: Slightly diminished breath sounds in the left base. CARDIAC: S1 and S2 regular. ABDOMEN: Soft. EXTREMITIES: No edema. DIAGNOSTIC DATA: Chest x-ray shows improvement in the left chest findings. ASSESSMENT: Congestive heart failure with pleural effusion. Doubt we are dealing with pneumonia. RECOMMENDATION: The effusion is improved with diuretics. Therefore, I would not recommend tapping it. He should be able to go back to the correction at any time. I have no further recommendations. Please recall if further assistance needed. Job ID: [id number]
[2019-06-18] MEDS: Divalproex Sodium 125 mg Sprinkle Capsule PO SCH (10:37)
[2019-06-18 17:05] VITALS: BP 144/97; TEMP 98.6
--- NOTE | 2019-06-19 01:43 | DIS ---
DATE OF ADMISSION: 06/15/2019 DATE OF DISCHARGE: 06/18/2019 DISCHARGE DIAGNOSES: 1. Pneumonitis, left lower lobe, improved. 2. Acute on chronic systolic congestive heart failure with ejection fraction of 30% to 35%. 3. Ischemic cardiomyopathy with ejection fraction of 30% to 35%. 4. Three-vessel coronary artery disease, chronic and stable. 5. Diabetes mellitus type 2, chronic. 6. Chronic atrial fibrillation, rate controlled. CONSULTATIONS: 1. Dr. Fuentes with Cardiology Service. 2. Dr. Jones with Pulmonology/Critical Care Service. PERTINENT LABORATORY AND X-RAY FINDINGS: Potassium ranged between 3.1 to 4.2. BNP 443, previously noted 178 on 10/08/2017. CT angiogram of the chest dated 06/15/2019 showed [id number] left-sided pleural effusion with consolidation of the lingula. Portable chest x-ray dated 06/15/2019 showed pulmonary vascular prominence. Dense left basilar infiltrate consistent with effusion. Portable chest x-ray dated 06/18/2019 showed left-sided parenchymal opacity, improved in comparison to a previous chest imaging. HOSPITAL COURSE: The patient was initially admitted after presenting with shortness of breath with associated pulmonary vascular prominence concerning for congestive heart failure and left lower lobe effusion. The patient was placed on IV Lasix and monitored for clinical response. The patient was also noted at the time of admission with atrial fibrillation with rapid ventricular response with initial heart rates in the 150s. The patient was placed on a Cardizem infusion initially, transitioning to oral rate control strategy with stabilization of overall rate. The patient did receive initial antibiotic therapy with azithromycin and Rocephin after concern for possible infectious process of the left lower lobe. The patient was evaluated by Cardiology and Pulmonology Service during the hospital stay with recommendations for general medical management. The patient was not deemed appropriate candidate for thoracentesis and received diuretic therapy through the remainder of the hospital course with overall improving volume of the left lower lobe pleural effusion. I have examined the patient at the time of discharge and discussed followup instructions. The patient verbalized understanding, in agreement, ready for discharge on 06/18/2019. DISCHARGE MEDICATIONS: 1. Allopurinol 100 mg p.o. daily. 2. Coreg 3.125 mg p.o. b.i.d. 3. Plavix 75 mg p.o. daily. 4. Vitamin B12 1000 mcg p.o. daily. 5. Depakote 375 mg p.o. b.i.d. 6. Cymbalta 30 mg p.o. daily. 7. NovoLog insulin sliding scale. 8. DuoNeb 3 mL nebulized q.4 hours p.r.n. 9. Metformin 500 mg p.o. q.a.m. 10. Potassium chloride 20 mEq p.o. b.i.d. 11. Entresto 97 mg/103 mg 1 tablet p.o. b.i.d. 12. Proscar 5 mg p.o. at bedtime. 13. Lasix 40 mg p.o. b.i.d. 14. Levemir 10 units subcutaneously daily. 15. Levaquin 500 mg p.o. daily x7 days. 16. Nitroglycerin 0.4 mg sublingually q.5 minutes p.r.n. chest pain. 17. Simvastatin 80 mg p.o. at bedtime. 18. Flomax 0.4 mg p.o. daily. FOLLOWUP: The patient is to follow up with Dr. Amanda Chaney. The patient is to follow up with Dr. Fuentes with Cardiology Service. CONDITION ON DISCHARGE: Fair. ACTIVITY: Ad-garry. DIET: Heart healthy and ADA. CODE STATUS: Do not attempt resuscitation. DISPOSITION: Discharged to [facility] on 06/18/2019. TIME SPENT: Total time preparing and coordinating discharge, 38 minutes. Job ID: [id number]
== END 2019-06-18 18:20 | DRG 291 ==
LOC: ERS 12:15 → ERHOLD 15:11 → OBSVTOIN 15:11 → 2NO 06-16 01:32 → T4-A 06-17 22:17
PROVIDERS: ADMIT Hospitalist; ATTEND Hospitalist
DX: I13.0 Hypertensive heart and chronic kidney disease with heart failure and stage 1 through stage 4 chronic kidney disease, or unspecified chronic kidney disease (principal); J18.9 Pneumonia, unspecified organism; I50.23 Acute on chronic systolic (congestive) heart failure; I48.20 Chronic atrial fibrillation, unspecified; I25.5 Ischemic cardiomyopathy; I25.10 Atherosclerotic heart disease of native coronary artery without angina pectoris; Z66 Do not resuscitate; N40.0 Benign prostatic hyperplasia without lower urinary tract symptoms; Z95.1 Presence of aortocoronary bypass graft; F17.210 Nicotine dependence, cigarettes, uncomplicated; E78.5 Hyperlipidemia, unspecified; Z79.4 Long term (current) use of insulin; Z86.73 Personal history of transient ischemic attack (TIA), and cerebral infarction without residual deficits; E66.9 Obesity, unspecified; Z68.34 Body mass index [BMI] 34.0-34.9, adult; E11.22 Type 2 diabetes mellitus with diabetic chronic kidney disease; N18.9 Chronic kidney disease, unspecified
CPT/HCPCS: 36415; 36416; 71045; 71275; 80048; 80053; 83880; 84484; 85025; 93005; 93306; 93798; 96374; 96375; 99406; J0456; J0696; J1650; J1815; J1940; J3490; J7050; Q9967